=== PATIENT | male | born 1960 | race Caucasian/White ===

== ENCOUNTER → 2019-11-15 12:26 | Outpatient (CLI) | payer SELFPAY ==
[2017-04-26 22:31] VITALS: BMI 25.5
[2019-11-15 14:04] LABS: EST Glomerular Filtration Rate 147 mL/min (>60); Est Glom Filt Rate - Afr Amer 177 mL/min (>60)
== END ==
PROVIDERS: Referring Provider Registered Nurse; Visit Provider Registered Nurse
DX: M51.16 Intervertebral disc disorders with radiculopathy, lumbar region (principal); M54.5 Low back pain; N28.9 Disorder of kidney and ureter, unspecified
CPT/HCPCS: 36415; 82565

== ENCOUNTER → 2025-01-24 | Outpatient (CLI) | payer MEDICARE, SELFPAY ==
--- NOTE | 2025-01-24 16:27 | MRI_ITS ---
PROCEDURE: SPINE LUMBAR (ROUTINE) 01/24/2025 REASON FOR EXAM: PAIN TECHNIQUE: SPINE LUMBAR (ROUTINE) COMPARISON: Radiographs on 12/09/2024. FINDINGS: Heterogeneous signal intensity of the visualized bone marrow, probably osteopenia/osteoporosis. Moderate diffuse spondylosis/moderate multilevel degenerative disc disease. Moderate chronic changes of Scheuermann's disease. Increased kyphosis at the level of the thoracolumbar junction. Moderate chronic changes of Baastrup's disease. Unchanged moderate chronic compression deformity of T12 vertebral body. No evidence of associated retropulsion or secondary canal stenosis. There is no evidence of replacement or acute fracture. The conus is unremarkable. Straightening of the lumbar lordosis, probably muscular spasm and pain. The vertebral alignment is within normal limits. Evaluation of the individual levels revealed the following: L5-S1: Mild diffuse disc bulge. Superimposed broad-based right foraminal disc protrusion measuring 3.2 mm. Bilateral facet joint arthropathy and ligamentum flavum hypertrophy. The spinal canal is not narrowed. There is moderate right and mild left neural foramina narrowing. L4-5: Grade 1 anterolisthesis measuring 3.3 mm. Mild diffuse disc bulge. Bilateral facet joint arthropathy and ligamentum flavum hypertrophy. The spinal canal is mildly narrowed. There is moderate right and mild left neural foramina narrowing. L3-4: There is intervertebral disc fusion. Mild posterior osteophyte formation. The spinal canal is not narrowed. Mild bilateral neural foramina narrowing. L2-3: Mild diffuse disc bulge. Bilateral facet joint arthropathy and ligamentum flavum hypertrophy. The spinal canal is mildly narrowed. Mild bilateral neural foramina narrowing. L1-2: Mild diffuse disc bulge. Bilateral facet joint arthropathy and ligamentum flavum hypertrophy. The spinal canal is not narrowed. Mild bilateral neural foramina narrowing. T12-L1: There is mild diffuse disc bulge. The spinal canal is not narrowed. There is mild bilateral neural foramina narrowing. T11-T12: There is mild diffuse disc bulge. The spinal canal is not narrowed. There is mild bilateral neural foramina narrowing. Normal visualized paraspinous soft tissue structures. MRI/Spine Lumbar (Routine) IMPRESSION: Spondylosis. Degenerative disc disease. [id number]
== END | disposition home or self-care (01) ==
PROVIDERS: Referring Provider Student in an Organized Health Care Education/Training Program; Visit Provider Student in an Organized Health Care Education/Training Program
DX: M51.362 Other intervertebral disc degeneration, lumbar region with discogenic back pain and lower extremity pain (principal)
CPT/HCPCS: 72148

== ENCOUNTER → 2025-04-28 | Outpatient (CLI) | payer MEDICARE, SELFPAY ==
--- OUTSIDE RECORDS SUMMARY | 2025-04-28 08:57 | XMS RPT_ITS | CCD ---
Author Organization [facility] [employer] [facility] Care Team Providers Care Master Plumber Name Role Phone Cathie Ike ELI Unavailable Unavailable Yung VEGA, Gerber Wilde Unavailable SARAH WATKINS Unavailable Unavailable JENNIFER PICKETT Unavailable Unavailable [place] VEGA, Merrill Addison Unavailable Care Physician, No Primary Primary Care Provider Unavailable Care Physician, No Primary Referring Provider Un available Jana Barrera Attending Provider Rama VEGA, Dr. Arita Attending Provider [phone] Jana Barrera Referring Provider Dr. Rm Alcantar MD Attending Provider Care Physician, No Primary Referring Unava ilable Care Physician, No Primary Primary Care Unava ilable Rm Alcantar Attending Unavailable Rm Alcantar Attending Unavailable Rm Alcantar Admitting Unavailable Care Physician, No Primary Primary Care Unava ilable Care Physician, No Primary Primary Care Unava ilable Jana Colin Referring Unavailable Jana Colin Attending Unavailable Care Physician, No Primary Primary Care Unava ilable Juan J Ontiveros Attending Unavailable Care Physician, No Primary Referring Unava ilable Care Physician, No Primary Primary Care Unava ilable Jana Colin Attending Unavailable Allergies Allergy Classification Reported Allergen(s) Allergy Type Date of Onset Reaction(s) Facility (2 sources) bee venom protein (honey bee) Propensity to adverse reactions 5 Other [facility] (1 source) bee venom protein (honey bee) Drug allergy (disorder) 5 [facility] Repository Medications Current Medications Medication Drug Class(es) Dates Sig (Normalized) Sig (Original) meloxicam 7.5 mg oral tablet (14 sources) Nonsteroidal Anti-inflammatory Drug Start: 12-09-2024 take 1 tablet by mouth once daily Meloxicam 7.5 mg tablet Active 7.5 mg PO daily December 09, 2024 12:00am Start: 05-01-2017 End: 05-01-2017 MELOXICAM 7.5 MG TABS 1 tabl et daily prn MELOXICAM [id number] Gerber Barragan MD Start: 04-26-2017 End: 12-09-2024 take 1 tablet by mouth once daily Meloxicam 15 MG tablet Discontinued 15 mg PO DAILY 01 09October 01, 2017 1:02pm December 09, 2024 8:08am methocarbamol 500 mg oral tablet (2 sources) Muscle Relaxant Start: 12-09-2024 take 1 tablet by mouth twice daily Methocarbamol 500 mg tablet Active 500 mg PO TWICE A DAY December 09, 2024 12:00am Completed/Discontinued Medications Medication Drug Class(es) Dates Sig (Normalized) Sig (Original) acetaminophen 325 mg oral tablet (4 sources) Start: 05-01-2017 TYLENOL 325 MG CAPS take as directed ACETAMINOPHEN [id number] Gerber Barragan MD Start: 04-27-2017 take 1-2 tablets by mouth every eight hours as needed for pain Acetaminophen 500 MG tablet Active 1000 mg PO EVERY 8 HOURS NEEDED as needed for pain not controlled with Mobic 30 April 27, 2017 5:46pm 1-2 tabs every 8 hours as needed for pain. cyclobenzaprine hydrochloride 10 mg oral tablet (1 source) Muscle Relaxant Start: 12-05-2019 take 1 tablet by mouth once daily as needed CYCLOBENZAPRINE HCL 10 MG TABS 1 tablet by mouth once daily as needed CYCLOBENZAPRINE HCL [id number] Merrill Osborne MD pregabalin 75 mg oral capsule (1 source) Start: 12-05-2019 take 1 tablet by mouth twice daily LYRICA 75 MG CAPS 1 tablet by mouth twice daily PREGABALIN [id number] Merrill Osborne MD traMADol hydrochloride 50 mg oral tablet (1 source) Opioid Agonist Start: 12-05-2019 take 1 tablet by mouth once daily as needed TRAMADOL HCL 50 MG TABS 1 tablet by mouth once daily as needed TRAMADOL HCL [id number] Merrill Osborne MD Problems Active Problems Problem Classification Problem Date Documented Date Episodic/Chronic Cardiac dysrhythmias (2 sources) Sinus tachycardia; Translations: [Tachycardia, unspecified] 04-27-2017 Episodic Diabetes mellitus without complication (2 sources) Hyperglycemia; Translations: [Hyperglycemia, unspecified] 04-27-2017 Episodic Fluid and electrolyte disorders (2 sources) Dehydration; Translations: [Dehydration] 04-27-2017 Episodic Other acquired deformities (2 sources) Kyphosis deformity of spine; Translations: [Unspecified kyphosis, site unspecified] 03-02-2025 Chronic Other connective tissue disease (2 sources) Weakness of left hand; Translations: [Other symptoms and signs involving the musculoskeletal system] 04-27-2017 Episodic Other screening for suspected conditions (not mental disorders or infectious disease) (2 sources) Decreased thyroid stimulating hormone level; Translations: [Other specified abnormal findings of blood chemistry] 04-27-2017 Episodic Residual codes; unclassified (4 sources) H/O Spinal surgery; Translations: [Other specified postprocedural states] 12-09-2024 Episodic Residual codes; unclassified (1 source) Other specified postprocedural states; Translations: [Other specified postprocedural states] Onset: 01-05-2025 Episodic Residual codes; unclassified (1 source) Other specified postprocedural states; Translations: [Other specified postprocedural states] Onset: 12-05-2019 12-05-2019 Residual codes; unclassified (1 source) Harmful pattern of use of nicotine; Translations: [Tobacco use] Onset: 12-05-2019 12-05-2019 Spondylosis; intervertebral disc disorders; other back problems (5 sources) Degeneration of lumbar intervertebral disc; Translations: [Degenerative disc disease (DDD) of lumbar region with discogenic back pain and leg pa] 12-09-2024 Chronic Spondylosis; intervertebral disc disorders; other back problems (5 sources) Lumbosacral stenosis; Translations: [Low back pain] Onset: 12-05-2019 12-05-2019 Episodic Syncope (4 sources) Syncope; Translations: [Syncope and collapse] Onset: 05-01-2017 05-01-2017 Episodic Unclassified (1 source) Other intervertebral disc degeneration, lumbar region with discogenic back pain and lower extremity pain; Translations: [Other intervertebral disc degeneration, lumbar region with discogenic back pain and lower extremity pain] Onset: 01-28-2025 Unclassified (1 source) Low back pain, unspecified; Translations: [Low back pain, unspecified] Onset: 01-05-2025 Past or Other Problems Problem Classification Problem Date Documented Da te Episodic/Chronic Medical examination/evaluation (2 sources) Encounter for general adult medical examination without abnormal findings; Translations: [Encounter for general adult medical examination without abnormal findings] Onset: 05-01-2017 05-01-2017 Episodic Other non-traumatic joint disorders (2 sources) Hemarthrosis, left knee; Translations: [Pain in left knee] Onset: 02-02-2017 Episodic Unclassified (1 source) Problem Results Test Name Value Interpretation Reference Range Facility Orthopedic Visit Reporton Orthopedic Visit Report [facility] [address] [place] [address] OFFICE VISIT Date of Service: 03/02/25 MR#: [id number] Acct: [id number] Name: RAMON SALINAS Rep #: [id number] : 1960 Provider: Dr. Rm Alcantar MD Age/Sex: 64/M Location: [facility] Status: Signed Intake Vital Signs 12/09/24 08:07 Height 5 ft 10 in Weight: 169 lb 2 oz BMI 24.3 Intake Visit Reasons: LUMBAR SPINE Chief Complaint: Lumbar Spine Pain Accompanied by: Self Allergies bee venom protein (honey bee) (bee sting) Adverse Reaction (Verified 03/02/25 08:04) Other Medications ???Medication ???Instructions ???Recorded ???Confirmed ???Type acetaminophen 500 mg tablet 1,000 mg (2 x 500 mg) PO Q8H PRN 0 04/27/17 03/02/25 Rx PRN pain not controlled with Mobic #30 tabs meloxicam 7.5 mg tablet 7.5 mg PO QDAY 12/09/24 03/02/25 H istory methocarbamol 500 mg tablet 500 mg PO BID 12/09/24 03/02/25 Hi story Have you fallen in the past year?: No [facility] Medical History (Updated 03/02/25 @ 16:[address] Rm Alcantar MD) Kyphosis Foraminal stenosis of lumbar region Surgical History History of back surgery Social History household members: spouse Smoking Status: Current every day smoker alcohol intake: current alcohol intake frequency: a few times a week HPI LUMBAR SPINE Chief Complaint: Lumbar MRI Review Details: This documentation accurately reflects the service provided and the decisions made by me, Dr. Rm Alcantar MD 03/02/25 0758. Part of today???s visit was documented by Albertina Fulton RN, acting as scribe. RAMON SALINAS is a 64 year old M here today for lumbar MRI review. He complains of bilateral low back pain. He reports stiffness in his low back. The pain does radiate down the lateral side of the right leg down to the toes. He describes the pain in his legs as a burning. He does report intermittent numbness and tingling into the right leg. The leg pain bothers him the most. 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 He reports being able to walk sixty yards. He does occasionally have trouble walking long distances. He has not has an injection since December. He is still doing stretching and exercises at home. He would like to discuss his MRI results and next steps. He denies any balance issues. He does report two previous lumbar spine surgeries twenty years ago. He denies a history of diabetes, heart or lung problems. He denies a history of strokes. The patient is a 64-year-old male presenting with worsening lower back pain and right leg pain. The patient has a history of lumbar surgeries performed over 20 years ago, with the first surgery addressing bulging discs at L4-5, followed by a second surgery six months later to address the opposite side at the same level. The second surgery involved a drainage tube and a three-day hospital stay, while the first was an outpatient procedure. Recently, the patient reports worsening pain over the past four years, primarily affecting the right leg, with symptoms including burning pain radiating down the leg to the toes, and stiffness in the back. The patient has been attending a pain management clinic for three years, receiving injections approximately every three months, which provide variable relief. Imaging studies revealed foraminal stenosis at L4-5 and L5-S1, with autofusion at L3-4 and a wedged vertebra at T12, contributing to the patient's symptoms. The patient has a forward-leaning posture and experiences muscle fatigue and spasms due to these spinal changes. - Musculoskeletal: Reports worsening lower back pain and burning pain radiating down the right leg to the toes. Denies pain on the left side. - Neurological: Reports stiffness in the back and variable relief from pain management interventions. Attestation: Documentation on this patient encounter was supported using ambient scribe technology/ voice AI technology. The patient consented to recording for the purpose of documenting the encounter. Provider reviewed content of the generated note prior to signature. 12/09/24: RAMON SALINAS is a 64 year old M here today for lumbar spine pain. Patient states the back has been bothering him off and on for years. He has a history of 2 different back surgeries several years ago. The surgery was with Dr. Wise. These surgeries were around 20 years. He states he had bulging discs and he had one surgery but it didn't take so had to have another one 6 months later. Patient states he has seen career coordinator, [facility], and pain management with Dr. Wilkins. He has been getting injections and the most recent was 1-2 weeks ag (more content not included)... Normal [facility] Magnetic resonance imaging r eportOrdered By: Hood Burgos on 01-25-2025 Study report [facility] [address] [place], [place] [address] Spine Lumbar (Routine) MR#: [id number] Acct: [id number] Name: RAMON SALINAS Rep #: [id number] : 1960 M 64 From: Aaron Burgos MD PCP: Care Physician,No Primary Status: REG CLI Study:Spine Lumbar (Routine) Date of Exam: 01/24/25 Exam# [id number] Ordering Dr: Art Colin PROCEDURE: SPINE LUMBAR (ROUTINE) 01/24/2025 REASON FOR EXAM: PAIN TECHNIQUE: SPINE LUMBAR (ROUTINE) COMPARISON: Radiographs on 12/09/2024. FINDINGS: Heterogeneous signal intensity of the visualized bone marrow, probably osteopenia/osteoporosis. Moderate diffuse spondylosis/moderate multilevel degenerative disc disease. Moderate chronic changes of Scheuermann's disease. Increased kyphosis at the level of the thoracolumbar junction. Moderate chronic changes of Baastrup's disease. Unchanged moderate chronic compression deformity of T12 vertebral body. No evidence of associated retropulsion or secondary canal stenosis. There is no evidence of replacement or acute fracture. The conus is unremarkable. Straightening of the lumbar lordosis, probably muscular spasm and pain. The vertebral alignment is within normal limits. Evaluation of the individual levels revealed the following: L5-S1: Mild diffuse disc bulge. Superimposed broad-based right foraminal disc protrusion measuring 3.2 mm. Bilateral facet joint arthropathy and ligamentum flavum hypertrophy. The spinal canal is not narrowed. There is moderate right and mild left neural foramina narrowing. L4-5: Grade 1 anterolisthesis measuring 3.3 mm. Mild diffuse disc bulge. Bilateral facet joint arthropathy and ligamentum flavum hypertrophy. The spinal canal is mildly narrowed. There is moderate right and mild left neural foramina narrowing. L3-4: There is intervertebral disc fusion. Mild posterior osteophyte formation. The spinal canal is not narrowed. Mild bilateral neural foramina narrowing. L2-3: Mild diffuse disc bulge. Bilateral facet joint arthropathy and ligamentumflavum hypertrophy. The spinal canal is mildly narrowed. Mild bilateral neural foramina narrowing. L1-2: Mild diffuse disc bulge. Bilateral facet joint arthropathy and ligamentumflavum hypertrophy. The spinal canal is not narrowed. Mild bilateral neural foramina narrowing. T12-L1: There is mild diffuse disc bulge. The spinal canal is not narrowed. There is mild bilateral neural foramina narrowing. T11-T12: There is mild diffuse disc bulge. The spinal canal is not narrowed. There is mild bilateral neural foramina narrowing. Normal visualized paraspinous soft tissue structures. MRI/Spine Lumbar (Routine) IMPRESSION: Spondylosis. Degenerative disc disease. Reading Location: [place] [address] CC: DARIUS Song; No Primary Care Physician ~ Job Boss: Signed [facility] Spine Lumbar (Routine)on Spine Lumbar (Routine) [facility] [address] [place], [place] [address] Spine Lumbar (Routine) MR#: [id number] Acct: [id number] Name: RAMON SALINAS Rep #: [id number] : 1960 M 64 From: Hood sin MD PCP: Care Physician,No Primary Status: REG CLI Study: Spine Lumbar (Routine) Date of Exam: 01/24/25 Exam# [id number] Ordering Dr: Jana Colin PROCEDURE: SPINE LUMBAR (ROUTINE) 01/24/2025 REASON FOR EXAM: PAIN TECHNIQUE: SPINE LUMBAR (ROUTINE) COMPARISON: Radiographs on 12/09/2024. FINDINGS: Heterogeneous signal intensity of the visualized bone marrow, probably osteopenia/osteoporosis. Moderate diffuse spondylosis/moderate multilevel degenerative disc disease. Moderate chronic changes of Scheuermann's disease. Increased kyphosis at the level of the thoracolumbar junction. Moderate chronic changes of Baastrup's disease. Unchanged moderate chronic compression deformity of T12 vertebral body. No evidence of associated retropulsion or secondary canal stenosis. There is no evidence of replacement or acute fracture. The conus is unremarkable. Straightening of the lumbar lordosis, probably muscular spasm and pain. The vertebral alignment is within normal limits. Evaluation of the individual levels revealed the following: L5-S1: Mild diffuse disc bulge. Superimposed broad-based right foraminal disc protrusion measuring 3.2 mm. Bilateral facet joint arthropathy and ligamentum flavum hypertrophy. The spinal canal is not narrowed. There is moderate right and mild left neural foramina narrowing. L4-5: Grade 1 anterolisthesis measuring 3.3 mm. Mild diffuse disc bulge. Bilateral facet joint arthropathy and ligamentum flavum hypertrophy. The spinal canal is mildly narrowed. There is moderate right and mild left neural foramina narrowing. L3-4: There is intervertebral disc fusion. Mild posterior osteophyte formation. The spinal canal is not narrowed. Mild bilateral neural foramina narrowing. L2-3: Mild diffuse disc bulge. Bilateral facet joint arthropathy and ligamentum flavum hypertrophy. The spinal canal is mildly narrowed. Mild bilateral neural foramina narrowing. L1-2: Mild diffuse disc bulge. Bilateral facet joint arthropathy and ligamentum flavum hypertrophy. The spinal canal is not narrowed. Mild bilateral neural foramina narrowing. T12-L1: There is mild diffuse disc bulge. The spinal canal is not narrowed. There is mild bilateral neural foramina narrowing. T11-T12: There is mild diffuse disc bulge. The spinal canal is not narrowed. There is mild bilateral neural foramina narrowing. Normal visualized paraspinous soft tissue structures. MRI/Spine Lumbar (Routine) IMPRESSION: Spondylosis. Degenerative disc disease. Reading Location: [place] [address] CC: DARIUS Song; No Primary Care Physician Job Boss: Signed Normal [facility] L/S Spine Min 4 Viewson L/S Spine Min 4 Views [facility] [address] [place] [address] L/S Spine Min 4 Views MR#: [id number] Acct: [id number] Name: RAMON SALINAS Rep #: [id number] : 1960 M 64 From: Sha Moscoso MD PCP: Care Physician,No Primary Status: DEP AMB Study: L/S Spine Min 4 Views Date of Exam: 12/09/24 Exam# [id number] Ordering Dr: Jana Colin PROCEDURE: L/S SPINE MIN 4 VIEWS 12/09/2024 REASON FOR EXAM: CHRONIC PAIN, PAIN RADIATES DOWN RT LEG TECHNIQUE: Four views, AP, lateral, flexion-extension COMPARISON: None available FINDINGS: 5 [id number] lumbar vertebral body types identified. Likely remote appearing moderate anterior wedge compression deformity of T12. No lumbar fracture or malalignment identified. L1-2 moderate disc space narrowing and degenerative endplate changes L2-3 mild disc space narrowing with anterior corner osteophyte formation L3-4 severe disc space narrowing with essentially [id number]-[id number] contact L4-5 severe disc space narrowing with [id number]-[id number] contact and degenerative endplate changes with appearance of suggested foraminal narrowing L5-S1 spondylosis/discogenic change No evidence of instability RAD/L/S Spine Min 4 Views IMPRESSION: Multilevel spondylosis/discogenic changes above. Likely remote appearing moderate anterior wedge compression deformity of T12. Reading Location: [id number] CC: DARIUS Song; No Primary Care Physician Job Boss: Signed Normal [facility] Orthopedic Visit Reporton Orthopedic Visit Report [facility] [address] [place] [address] OFFICE VISIT Date of Service: 12/09/24 MR#: [id number] Acct: [id number] Name: RAMON SALINAS Rep #: [id number] : 1960 Provider: DARIUS Song Age/Sex: 64/M Location: [facility] Status: Signed Intake Vital Signs 04/27/17 13:23 12/09/24 08:07 Height 5 ft 10 in 5 ft 10 in Weight: 169 lb 2 oz BMI 24.3 Intake Visit Reasons: LUMBAR SPINE Chief Complaint: Lumbar Spine Pain Accompanied by: Self Is patient in pain?: Yes Pain scale (1-10): 2 Allergies bee venom protein (honey bee) (bee sting) Adverse Reaction (Verified 12/09/24 08:09) Other Medications ???Medication ???Instructions ???Recorded ???Confirmed ???Type acetaminophen 500 mg tablet 1,000 mg (2 x 500 mg) PO Q8H PRN 0 04/27/17 12/09/24 Rx PRN pain not controlled with Mobic #30 tabs meloxicam 7.5 mg tablet 7.5 mg PO QDAY 12/09/24 12/09/24 H istory methocarbamol 500 mg tablet 500 mg PO BID 12/09/24 12/09/24 Hi story Have you fallen in the past year?: No PFSH Surgical History History of back surgery Social History (Updated 12/09/24 @ 08:10 by Emeli White) household members: spouse Smoking Status: Current every day smoker alcohol intake: current alcohol intake frequency: a few times a week HPI LUMBAR SPINE Details: This documentation accurately reflects the service provided and the decisions made by me, DARIUS Song 12/09/24 0802. Part of today???s visit was documented by Emeli Pruitt ATC, acting as scribe. RAMON SALINAS is a 64 year old M here today for lumbar spine pain. Patient states the back has been bothering him off and on for years. He has a history of 2 different back surgeries several years ago. The surgery was with Dr. Wise. These surgeries were around 20 years. He states he had bulging discs and he had one surgery but it didn't take so had to have another one 6 months later. 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 Wilkins. He has been getting injections and the most recent was 1-2 weeks ago. Says that he has relief from that injection. He states the injections do give him relief. He states one injection gave him relief for about 5 months. He describes the pain in the right lumbar spine and down the right leg. He gets a burning sensation down the right leg and he feels like this is down his entire leg. He says that this extends do to his foot. Denies any left sided leg symptoms. He states most of the pain in the lumbar spine are right around his scars from the previous surgeries. He states he gets pain, numbness/tingling down the right leg. He states when the pain is really bad he notices he starts waddling when walking. He still works part-time at [employer] and states he is on his feet all day long so at the end of the day both legs hurt and it is hard to tell if they are weak. He denies any balance issues. He is prescribed meloxicam and methocarbamol but states he hasn't noticed if it gives him any relief or not. He does exercises and stretches at home on his own. He was sent to physical therapy in the past but states most of the stuff can be done on his own. He had an MRI done at [facility] in 2019. No diabetes, no heart or lung issues, no blood thinners. No prior abdominal surgeries. Ortho Exam General General: Yes no acute distress Neurologic: Yes alert and Yes oriented x3 Spine SPINE TESTING CERVICAL THORACIC LUMBAR Musculoskeletal Strength 0=absent - 5=normal Details: Neurological exam of the lower extremities shows 5x5 power. Normal sensations across all dermatomes. No hyperreflexia. No midline or paraspinal tenderness. Physical examination of the back shows a well-healed midline incision. Coding Level of Care Code Off vis,new,level 4 Diagnoses Degenerative disc disease (DDD) of lumbar region with discogenic back pain and leg pain M51.362 History of back surgery Z98.890 Assessment and Plan Assessment and Plan (1) Degenerative disc disease (DDD) of lumbar region with discogenic back pain and leg pain: Status: Acute (2) History of back surgery: Status: Acute Orders: Orders L/S Spine Min 4 Views Today M54.50 - Low back pain, unspecified Spine Lumbar (Routine) Today M51.362 - Other intervertebral disc degeneration, lumbar region with discogenic back pain and lower extremity pain Medications: Discontinued meloxicam Discontinued Reason: Pt no longer taking 15 mg PO DAILY 30 tabs 1RF Plan Obtained and reviewed x-rays today in the clinic. Independent interpretation of the x-rays was performed. X-rays show a multilevel disc height loss throughout the lumbar spine, a mild spondylolisthesis of L4 o (more content not included)... Normal [facility] Clinical Summary: HMSPatient IDon 12-05-2019 [facility] Work Phone: Office Visit: New - 1st visi t with practice, Rm: 2on 12-05-2019 NEGATED: Highlighted rowMRI (magnetic resonance imaging) history of the lumbar on 11/24/2019 at [facility] imported [facility] Work Phone: NEGATED: Highlighted rowTobacco smoking status NHIS current everyday smoker [facility] Work Phone: NEGATED: Highlighted rowxray history of the lumbar on 11/07/2019 at [facility] imported [facility] [facility] Work Phone: Office Visit: New Pt. Visito n 05-01-2017 Documentation of current medications (procedure) Done Invalid Interpretation Code [facility] Work Phone: Fall risk assessment No Invalid Interpretation Code [facility] Work Phone: Tobacco use [facility] Current every day smoker Invali d Interpretation Code [facility] Work Phone: OBSOLETEon 03-09-2017 OBSOLETE Refill (ORTHWS) RAMON SALINAS ([id number]) 1960 MDate Time Provider Department03/09/17 JENNIFER PICKETT During your visit today, we recorded the following information about you:Sarah Barreto RN 03/09/2017 11:55 AM SignedPatient has been identified by name and date of : YesRX INSTRUCTIONS:Patient aware RX will be sent to pharmacy. Please call when approved.Patient phones requesting refills as follows:Pending Prescriptions Disp Refills MELOXICAM 15 MG TABLET 30 tablet 0 Sig: Take 1 tablet by mouth once daily. SHITAL: NoPt. states it has really helped but he would like to keep taking so he canavoid surgery. Please review and advise.Sarah Flynn Ma 03/10/2017 8:13 AM SignedLeft a detailed message for patient on Priori Data.Allergies As of Date: 03/09/2017(No Known Allergies)Date Reviewed: 02/12/2017Reviewed by: Kristyn Park Ma - Fully AssessedReason for Visit: Refill Request [94]Order(s):meloxicam (MOBIC) 15 mg tabletTake 1 tablet by mouth once daily.Disp: 30 tabletRfl: 0Prescriptions as of 03/09/2017 Sig: MELOXICAM 15 MG TABLET Take 1 tablet by mouth once d*Problem List As Of Date: 03/09/2017(None)Prescrip tions ordered this encounter Disp Refills Start End MELOXICAM 15 MG TABLET 30 t* 0 03/10/2017 Route: ORAL Sig: Take 1 tablet by mouth once daily.Medications Discontinued During This Encounter meloxicam (MOBIC) 15 mg tablet 30 t* 0 02/12/2017 03/10/2017 Route: ORAL Sig: Take 1 tablet by mouth once daily. Disc: Reason for discontinue is not on file. Status:Closed by JENNIFER PICKETT MD on 03/10/17 [facility] CNOVon 02-12-2017 CNOV Office Visit (ORTHWS) RAMON SALINAS ([id number]) 1960 MDate Time Provider Department02/12/17 2:25 PM JENNIFER PICKETT During your visit today, we recorded the following information about you: Pulse Blood pressure Weight Height 74/minute 133/84 81.6 kg 1.765 Litzy Park Ma 02/18/2017 7:42 AM SignedPatient presents with:New Patient: Left knee meniscus tear - Ref. Dr. Watt ROOMING INTAKE FLOWSHEET DATARisk ScreeningDo you have concerns about personal safety or safety in the home?: NoPainPain Score: 4/10Pain Location: Knee-LeftDescription: Dull, AchingDuration Amount of Time: 6Duration Units: MonthsFrequency: ContinuousIntervention: Sri Watkins referring patient. Patient states he started having medial left kneepain in August. No specific injury. Dr. Watkins gave him a cortisone injectionon 12/31/16 and only helped for about 3 days. He was seen 1 1/2 weeks later anddid and aspiration on his knee. Patient had x-rays done on 12/31/16 and MRI on02/02/17. 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 Taking Daypro for the pain and is not sure if is is helpingor if the aspiration helped his pain.Jennifer Pickett MD 02/18/2017 7:42 AM SignedJennifer Pickett [facility]edicsOrtk[facility] human [facility] ssdaecs [place] [address]Nhvq: [phone] Acmi 2016CHIEF COMPLAINT: New Patient (Left knee meniscus tear - Ref. Dr. Watkins)HPI: Mr. Ramon Salinas is a 56 year old male presents for consultation witha left knee giving him troubles over the last 6 months or so. Aching and dullpain at times can be 4 out of 10. He denies any specific injury nor trauma.He does stand on his feet all day and has to crouch down which gives it theknee more troubles. He had a cortisone injection and also subsequently had abit of a hemarthrosis and had an aspiration and back in the beginning of January.He states that the removal of fluid on the knee allow the knee to feel quite abit better more recently his he's been taking Daypro as well, but is unsure ofits efficacy.ASSESSMENT:M25. 562 Acute pain of left knee (primary encounter diagnosis)PLAN:Were going to try an anti-inflammatory as well as possibly an rail car unloader, howeverhe does not think it be able to use it based on all of squatting he has to do.He certainly has some reported improvement since its prior visit and nosurgical intervention is necessary at this time.If symptoms persist, knee arthroscopy certainly would be an appropriateintervention. FOLLOW UP INSTRUCTIONS:As neededMr. Ramon Salinas was advised as to contrast therapies and/or to takeanalgesics/anti-infl ammatories as needed and all contraindications werereviewed.OBJECTIVE:Apolinar Salinas is a pleasant 56 year old in no apparent distress.Gen:BP 133/84 Pulse 74 Ht 5' 9.5ANDquot; (1.77m) Wt 180 lb (81.6kg) BMI26.21 kg/(m2). nl development, non obese, no deformitiesENT: Normocephalic, normal hearing, moist mucosaCV: Pulses:DP/PT= 2+ and symmetric, capillary refill ANDlt; 2 secs, no peripheraledema/varicosi tiesSkin: no rash, bruising or lesions. Good turgor.Psych: cooperative and appropriate, alert and oriented x 3, good mood andaffect.Musculoskeleta l:Patient walks with a very mild antalgia, normal station. Hip motion withoutpain. Knee with scant effusion. Patella tracks normally. There is nopatellar crepitance. No pain along the medial or lateral facets. Range ofmotion 5?130 degrees. Positive medial, without lateral joint line pain onpalpation. Ligamentous exam stable on varus and valgus stress testing at 0 and30 degrees. Hung's examination is negative. Posterior drawer is negative.Painful McMurrays, without palpable click. Extremity is warm and well perfused. 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 0212 ?- ?MRI KNEE WO IVCON LT ?/ REASON: multiple diagnoses?? ?* * * * Physician Interpretation * * * *?EXAMINATION: ?MRI LEFT KNEE WITHOUT CONTRASTHISTORY: ?Hemarthrosis, left knee Pain in left kneeTECHNIQUE: Routine non-contrast MRI of the kneeM: ?MRK_2COMPARISON: ?Radiographs 12/31/2016RESULT:MENISCI :Medial Meniscus: ?Complex tear in the posterior horn and body there isprobably displaced tissue near the posterior horn superiorly.Lateral Meniscus: ?Degenerative changes without a tearLIGAMENTS:ACL: ?IntactPCL: ?IntactMCL: ?IntactLCL Complex: ?IntactCARTILAGE:Medial Femoral Condyle: Large area(s) of full thickness cartilageloss/fissuringM edial Tibial Plateau: Moderate sized area(s) of predominantly low grade(ANDlt;50% thickness) cartilage loss/fissuring with smaller area(s) of fullthickness cartilage loss/fissuringLateral Femoral Condyle: NormalLateral Tibial Plateau: NormalPatella: NormalTrochlea: NormalTENDONS: ?The distal quadriceps and patellar tendons are intact. ?Thepopliteus tendon is intact.BONES AND MARROW: ?Subchondral trabecular insufficiency fractureweightbearing surface of the medial tibial Plateau medially with moderatedegree of adjacent bone marrow edema.MUSCLES: ?Muscle bulk and signal intensity are normal.JOINT FLUID AND SYNOVIUM: ?Small joint effusion. ?No synovitis. NoBaker's cyst.OTHER: ?No other significant abnormality identified.Supporting Subjective Information Below:Past Medical History: No past medical history on file.Past Surgical History: PAST SURGICAL [id number]: PAST SURGICAL HISTORY OF Comment: Removal calcium deposits and bone spurs on lumbar spineNo date: REMOVE TONSILS/ADENOIDS,ANDlt;1 2 Y/O Comment: T/A (under age 10 years)Family History:FAMILY HISTORY Heart Mother Arthritis Mother CHF [OTHER] FatherSocial History:Social History Marital status: Spouse name: Years of education: Number of children:Social History Main Topics Smoking status: Current Every Day Smoker Packs/day: 1.00 Years: 26.00 Types: Cigarettes Smokeless status: Never Used Alcohol use: Yes Comment: Occasionally Drug use: No Sexual activity: Yes Partners with: FemaleMedications:Ilir moreno Outpatient Prescriptions:meloxicam (MOBIC) 15 mg tablet Take 1 tablet by mouth once daily.No current facility-administered medications for this visit.Allergies: Review of patient's allergies indicates no known allergies.ROS:General (negative for fatigue, malaise, weight loss/gain)HEENT (negative for headache, earache, recent vision changes, sinus pain, sorethroat) Respiratory (no recent shortness of breath, hemoptysis)CV (negative for chest tightness, palpitations)Musculoskel etal (see HPI)Psych (no depression, anxiety)This note was partially generated using DEXMA voice recognition system, andthere may be some incorrect words, spellings, and punctuation that were notnoted in checking the note before saving.Lizz Whittington Provider: SELF [200]Allergies As of Date: 02/12/2017(No Known Allergies)Date Reviewed: 02/12/2017Reviewed by: Kristyn Park Ma - Fully AssessedReason for Visit: New Patient [172] Cmt: Left knee meniscus tear [facility] Diagnosis:Acute pain of left knee [M25.562]Order(s):meloxi cam (MOBIC) 15 mg tabletTake 1 tablet by mouth once daily.Disp: 30 tabletRfl: 0Prescriptions as of 02/12/2017 Sig: MELOXICAM 15 MG TABLET Take 1 tablet by mouth once d*Problem List As Of Date: 02/12/2017(None)Prescrip tions ordered this encounter Disp Refills Start End MELOXICAM 15 MG TABLET 30 t* 0 02/12/2017 Route: ORAL Sig: Take 1 tablet by mouth once daily.Medications Discontinued During This Encounter oxaprozin (DAYPRO) 600 mg tablet 60 t* 0 01/16/2017 02/12/2017 Route: ORAL Sig: Take 1 tablet by mouth twice daily for 30 days. Disc: Changing Therapy/Dosage FormLetter Josetemoe Salinas Date [facility] - 1960 [facility] - [id number] Pickett M.D.Department of Orthopaedic [address]flwzt[address], [place] [address]Refvvf: [phone]: [phone]: Ramon Salinas [id number] Whom It May Concern:Ramon Salinas was seen in my office today at [facility].Please excuse from work.Should you have any questions, or require additional information, please donot hesitate to contact my office.Sincerely,Jennifer Pickett MDEncounter Number: [id number] Status:Closed by JENNIFER PICKETT MD on 02/18/17 Normal [facility] PROGRESSon 02-12-2017 PROGRESS HNO ID: [id number]: Jennifer PickettService: (none)Author Type: PhysicianType: Progress NotesFiled: 02/18/2017 7:42 AMNote Text:SHAJI Whittingtonepartment of OrthopaedicsOrthopaedics [address] [place] [address]Hjve: [phone] Febz 2016CHIEF COMPLAINT: New Patient (Left knee meniscus tear - Ref. Dr. Watkins)HPI: Mr. Ramon Salinas is a 56 year old male presents for consultationwith a left knee giving him troubles over the last 6 months or so. Achingand dull pain at times can be 4 out of 10. He denies any specific injurynor trauma. He does stand on his feet all day and has to crouch downwhich gives it the knee more troubles. He had a cortisone injection andalso subsequently had a bit of a hemarthrosis and had an aspiration andback in the beginning of January. He states that the removal of fluid on theknee allow the knee to feel quite a bit better more recently his he's beentaking Daypro as well, but is unsure of its efficacy.ASSESSMENT:M25. 562 Acute pain of left knee (primary encounter diagnosis)PLAN:Were going to try an anti-inflammatory as well as possibly an rail car unloader,however he does not think it be able to use it based on all of squattinghe has to do. He certainly has some reported improvement since its priorvisit and no surgical intervention is necessary at this time.If symptoms persist, knee arthroscopy certainly would be an appropriateintervention. FOLLOW UP INSTRUCTIONS:As neededMr. Ramon Salinas was advised as to contrast therapies and/or to takeanalgesics/anti-infl ammatories as needed and all contraindications werereviewed.OBJECTIVE:Apolinar Salinas is a pleasant 56 year old in no apparent distress.Gen:BP 133/84 Pulse 74 Ht 5' 9.5" (1.77m) Wt 180 lb (81.6kg) BMI26.21 kg/(m2). nl development, non obese, no deformitiesENT: Normocephalic, normal hearing, moist mucosaCV: Pulses:DP/PT= 2+ and symmetric, capillary refill < 2 secs, noperipheral edema/varicositiesSkin: no rash, bruising or lesions. Good turgor.Psych: cooperative and appropriate, alert and oriented x 3, good mood andaffect.Musculoskeleta l:Patient walks with a very mild antalgia, normal station. Hip motionwithout pain. Knee with scant effusion. Patella tracks normally. Thereis no patellar crepitance. No pain along the medial or lateral facets.Range of motion 5?130 degrees. Positive medial, without lateral jointline pain on palpation. Ligamentous exam stable on varus and valgus stresstesting at 0 and 30 degrees. Hung's examination is negative.Posterior drawer is negative. Painful McMurrays, without palpable click.Extremity is warm and well perfused. Sensation is grossly intact to lighttouch, subjectively.IMAGING:COM PLEX TEAR OF THE MEDIAL MENISCUS, DEGENERATIVE CHONDRAL LOSS IN THEMEDIAL COMPARTMENT AND SMALL SUBCHONDRAL TRABECULAR DEFICIENCY FRACTUREIN THE MEDIAL TIBIAL PLATEAU.Job Boss : ABBI ?Transcribe Date/Time: Jan ?2:05PDictated by : VIRGINIA LOPEZ MDThis examination was interpreted and the report reviewed andelectronically signed by:VIRGINIA LOPEZ MD on Jan ?2:08PM ?ESTResults-Findings* * *Final Report* * *DATE OF EXAM: Jan ?1:46PM ?WRM ? 0212 ?- ?MRI KNEE WO IVCON LT ?/ REASON: multiple diagnoses?? ?* * * * Physician Interpretation * * * *?EXAMINATION: ?MRI LEFT KNEE WITHOUT CONTRASTHISTORY: ?Hemarthrosis, left knee Pain in left kneeTECHNIQUE: Routine non-contrast MRI of the kneeM: ?MRK_2COMPARISON: ?Radiographs 12/31/2016RESULT:MENISCI :Medial Meniscus: ?Complex tear in the posterior horn and body there isprobably displaced tissue near the posterior horn superiorly.Lateral Meniscus: ?Degenerative changes without a tearLIGAMENTS:ACL: ?IntactPCL: ?IntactMCL: ?IntactLCL Complex: ?IntactCARTILAGE:Medial Femoral Condyle: Large area(s) of full thickness cartilageloss/fissuringM edial Tibial Plateau: Moderate sized area(s) of predominantly low grade(<50% thickness) cartilage loss/fissuring with smaller area(s) of fullthickness cartilage loss/fissuringLateral Femoral Condyle: NormalLateral Tibial Plateau: NormalPatella: NormalTrochlea: NormalTENDONS: ?The distal quadriceps and patellar tendons are intact. ?Thepopliteus tendon is intact.BONES AND MARROW: ?Subchondral trabecular insufficiency fractureweightbearing surface of the medial tibial Plateau medially with moderatedegree of adjacent bone marrow edema.MUSCLES: ?Muscle bulk and signal intensity are normal.JOINT FLUID AND SYNOVIUM: ?Small joint effusion. ?No synovitis. NoBaker's cyst.OTHER: ?No other significant abnormality identified.Supporting Subjective Information Below:Past Medical History: No past medical history on file.Past Surgical History: PAST SURGICAL [id number]: PAST SURGICAL HISTORY OF Comment: Removal calcium deposits and bone spurs on lumbar spineNo date: REMOVE TONSILS/ADENOIDS,<12 Y/O Comment: T/A (under age 10 years)Family History:FAMILY HISTORY Heart Mother Arthritis Mother CHF [OTHER] FatherSocial History:Social History Marital status: Spouse name: Years of education: Number of children:Social History Main Topics Smoking status: Current Every Day Smoker Packs/day: 1.00 Years: 26.00 Types: Cigarettes Smokeless status: Never Used Alcohol use: Yes Comment: Occasionally Drug use: No Sexual activity: Yes Partners with: FemaleMedications:Ilir moreno Outpatient Prescriptions:meloxicam (MOBIC) 15 mg tablet Take 1 tablet by mouth once daily.No current facility-administered medications for this visit.Allergies: Review of patient's allergies indicates no known allergies.ROS:General (negative for fatigue, malaise, weight loss/gain)HEENT (negative for headache, earache, recent vision changes, sinus pain,sore throat) Respiratory (no recent shortness of breath, hemoptysis)CV (negative for chest tightness, palpitations)Musculoskel etal (see HPI)Psych (no depression, anxiety)This note was partially generated using DEXMA voice recognition system,and there may be some incorrect words, spellings, and punctuation thatwere not noted in checking the note before saving.Jennifer Pickett MD Normal [facility] PROGRESS HNO ID: [id number]: Kristyn Woodruffervice: (none)Author Type: (none)Type: Progress NotesFiled: 02/18/2017 7:42 AMNote Text:Patient presents with:New Patient: Left knee meniscus tear - Ref. Dr. WatkinsAMB ROOMING INTAKE FLOWSHEET DATARisk ScreeningDo you have concerns about personal safety or safety in the home?: NoPainPain Score: 4/10Pain Location: Knee-LeftDescription: Dull, AchingDuration Amount of Time: 6Duration Units: MonthsFrequency: ContinuousIntervention: Sri Watkins referring patient. Patient states he started having medial leftknee pain in August. No specific injury. Dr. Watkins gave him a cortisoneinjection on 12/31/16 and only helped for about 3 days. He was seen 1 1/2weeks later and did and aspiration on his knee. Patient had x-rays done on12/31/16 and MRI on 02/02/17. Patient works in an [employer] and stands on his feet all day. Taking Daypro for the pain andis not sure if is is helping or if the aspiration helped his pain. Normal [facility] MRI KNEE WO IVCON LTon 02-02 MRI KNEE WO IVCON LT * * *Final Report* * *DATE OF EXAM: Feb 02 2017 1:46PM [facility] 0212 - MRI KNEE WO IVCON LT / REASON: multiple diagnoses * * * * Physician Interpretation * * * * EXAMINATION: MRI LEFT KNEE WITHOUT CONTRASTHISTORY: Hemarthrosis, left knee Pain in left kneeTECHNIQUE: Routine non-contrast MRI of the kneeM: MRK_2COMPARISON: Radiographs 12/31/2016RESULT:MENISCI :Medial Meniscus: Complex tear in the posterior horn and body there is probably displaced tissue near the posterior horn superiorly.Lateral Meniscus: Degenerative changes without a tearLIGAMENTS:ACL: IntactPCL: IntactMCL: IntactLCL Complex: IntactCARTILAGE:Medial Femoral Condyle: Large area(s) of full thickness cartilage loss/fissuringMedial Tibial Plateau: Moderate sized area(s) of predominantly low grade (<50% thickness) cartilage loss/fissuring with smaller area(s) of full thickness cartilage loss/fissuringLateral Femoral Condyle: NormalLateral Tibial Plateau: NormalPatella: NormalTrochlea: NormalTENDONS: The distal quadriceps and patellar tendons are intact. The popliteus tendon is intact.BONES AND MARROW: Subchondral trabecular insufficiency fracture weightbearing surface of the medial tibial Plateau medially with moderate degree of adjacent bone marrow edema.MUSCLES: Muscle bulk and signal intensity are normal.JOINT FLUID AND SYNOVIUM: Small joint effusion. No synovitis. No Wan's cyst.OTHER: No other significant abnormality identified.IMPRESSION:CO MPLEX TEAR OF THE MEDIAL MENISCUS, DEGENERATIVE CHONDRAL LOSS IN THE MEDIAL COMPARTMENT AND SMALL SUBCHONDRAL TRABECULAR DEFICIENCY FRACTURE IN THE MEDIAL TIBIAL PLATEAU.Job Boss : ABBI Transcribe Date/Time: Feb 02 2017 2:05PDictated by : VIRGINIA LOPEZ MDThimecca examination was interpreted and the report reviewed and electronically signed by: VIRGINIA LOPEZ MD on Feb 02 2017 2:08PM EST Normal [facility] PROGRESSon 02-02-2017 PROGRESS HNO ID: [id number]: Mere Varner RtService: (none)Author Type: (none)Type: Progress NotesFiled: 02/02/2017 1:22 PMNote Text: Radiology Service Progress NotePATIENT NAME: Ramon SalinasMRN: [id number] OF SERVICE: February 02, 2017TIME: 1:21 PMPATIENT IDENTITY VERIFICATION COMPLETED USING TWO (2) METHODS: Patientconfirmed name verbally and Date of .PATIENT GENDER DATA: MalePATIENT RELEVANT IMPLANT DATA REVIEWED: YesRADIOLOGY DEPARTMENT: MR; Exam(s) Completed: Lower MSK: Knee, leftPERIPHERAL IV DATA: Not applicableSIGNED BY: Mere Varner RtJuly 2016 1:21 PM Normal [facility] Vital Signs Date Time Vital Sign Value Performing Clinician Facility 12-09-2024 08:07-0400 Body height 177.8 cm No Primary Care Physician [facility] 12-09-2024 08:07-0400 Body mass index (BMI) [Ratio] 24.3 kg/m2 No Primary Care Physician [facility] 12-09-2024 08:07-0400 Body weight 76.71 kg No Primary Care Physician [facility] 05-01-2017 13:24-0400 BMI (Body Mass Index) 26.15 kg/m2 Gerber Barragan MD [facility] Work Phone: 05-01-2017 13:24-0400 Body Temperature 97.5 [degF] Gerber Barragan MD [facility] Work Phone: 05-01-2017 13:24-0400 BP Diastolic 87 mm[Hg] Gerber Barragan MD [facility] Work Phone: 05-01-2017 13:24-0400 BP Systolic 141 mm[Hg] Gerber Barragan MD [facility] Work Phone: 05-01-2017 13:24-0400 Height 172.72 cm Gerber Barragan MD [facility] Work Phone: 05-01-2017 13:24-0400 Pulse (Heart Rate) 70 /min Gerber Barragan MD [facility] Work Phone: 05-01-2017 13:24-0400 Respiratory Rate 16 /min Gerber Barragan MD [facility] Work Phone: 05-01-2017 13:24-0400 Weight 78.02 kg Gerber Barragan MD [facility] Work Phone: NEGATED: Highlighted [id number] 11:19-0400 BMI (Body Mass Index) 24.57 kg/m2 Hair Vance ANIMAL 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 WORKER [facility] Work Phone: NEGATED: Highlighted [id number] 11:19-0400 Body weight 73 kg Hair Pinky ANIMAL HUSBANDRY WORKER [facility] Work Phone: NEGATED: Highlighted [id number] 11:19-0400 Body weight 73.03 kg Hair Pinky ANIMAL HUSBANDRY WORKER [facility] Work Phone: NEGATED: Highlighted [id number] 11:19-0400 Heart rate 2+ Hair Vance ANIMAL HUSBANDRY WORKER [facility] Work Phone: NEGATED: Highlighted [id number] 11:19-0400 Height 173 cm Hair Vance ANIMAL HUSBANDRY WORKER [facility] Work Phone: NEGATED: Highlighted [id number] 11:190400 Height 172.72 cm Hair Vance LPN [facility] Work Phone: Encounters Encounter Date Encounter Type Care Provider Facility Start: 07-11-2025 ambulatory Rm Alcantar Facility:[facility] Start: 03-02-2025 End: 03-02-[address] Rm Alcantar MD -[facility] Work Phone: Start: 03-02-2025 End: 03-02-2025 ambulatory No Primary Care Physician -[facility] Start: 01-24-2025 End: 01-24-2025 ambulatory No Primary Care Physician -[facility] Start: 01-24-2025 End: 01-24-2025 Patient encounter procedure Jana MCCOY -[facility] Work Phone: Start: 01-24-2025 End: 01-24-2025 ambulatory No Primary Care Physician Facility:[facility] Start: 12-09-2024 End: 12-09-2024 Patient encounter procedure Jana MCCOY -[facility] Work Phone: Start: 12-09-2024 End: 12-09-2024 ambulatory No Primary Care Physician Facility:[facility] Start: 12-05-2019 End: 12-05-2019 Patient encounter procedure Merrill Osborne MD Work Phone: [facility] Work Phone: Start: 02-12-2017 End: 02-18-2017 Ambulatory JENNIFER PICKETT [facility] Start: 02-02-2017 End: 02-02-2017 Ambulatory SARAH WATKINS [facility] Procedures Date Procedure Procedure Detail Performing Clinician Start: 01-24-2025 MRI of lumbar spine No Primary Care Physician Start: 12-09-2024 X-ray of lumbosacral spine No Primary Care Physician Start: 12-05-2019 End: 12-05-2019 Blood pressure screening not performed - reason not given Merrill Osborne MD Work Phone: Start: 12-05-2019 End: 12-05-2019 BMI documented within normal parameters - no follow-up plan is required Merrill Osborne MD Work Phone: Start: 12-05-2019 End: 12-05-2019 Documentation of current medications Merrill Osborne MD Work Phone: Start: 12-05-2019 End: 12-05-2019 Pain assessment documented as positive - follow-up documented Merrill Osborne MD Work Phone: Start: 12-05-2019 End: 12-05-2019 Pt tobacco screen rcvd tlk Merrill Osborne MD Work Phone: NEGATED: Highlighted rowStart: 12-05-2019 End: 12-05-2019 Documentation of current medications Hair Vance LPN NEGATED: Highlighted rowStart: 12-05-2019 End: 12-05-2019 Smoking cessation education Hair Vance LPN Plan of Treatment Date Care Activity Detail Author Start: 02-06-2020 End: 02-06-2020 Appointment Appointment [facility] Work Phone: Start: 12-05-2019 End: 12-05-2019 Appointment Appointment [facility] Work Phone: Start: 12-05-2019 End: 12-05-2019 Njx dx/ther sbst intrlmnr lmbr/sac w/img gdn Epidural injection(s) - Lumbar [facility] Work Phone: Start: 12-05-2019 End: 12-05-2019 Pain Management consultation Pain Management consultation Non Specified [facility] Work Phone: Start: 05-01-2017 End: 05-01-2017 Appointment Appointment [facility] Work Phone: Start: 05-01-2017 End: 05-01-2017 Follow Up Appt 6 months Follow Up Appt 6 months [facility] Work Phone: Patient Education \\[id number] PtEducati [id number] [facility] Work Phone: Immunizations Immunization Date Immunization Notes Care Provider Flory mock 05-14-2016 Influenza virus vaccine No P rimary Care Physician [facility] 11-27-2014 tetanus toxoid, redu amado diphtheria toxoid, and acellular pertussis vaccine, adsorbed No Primary Care Physician [facility] Payers Date Payer Category Payer Medicare [id number] 2024 Self-pay Unknown [id number] Unknown [id number] Unknown [id number] Unknown [id number] Unknown [id number] Unknown [id number] Social History Date Type Detail Facility Start: 12-09-2024 Tobacco smoking status NHIS Smokes tobacco daily (finding) [facility] Start: 04-27-2017 Alcohol Alcohol [facility] Start: 04-27-2017 Lives Lives [facility] Start: 04-27-2017 Tobacco Use Tobacco Use [facility] Start: 1960 Sex Assigned At Male [facility] NEGATED: Highlighted rowStart: 12-05-2019 End: 12-05-2019 Alcohol use Alcohol use [facility] Work Phone: NEGATED: Highlighted rowStart: 12-05-2019 End: 12-05-2019 Assertion Current every day smoker [facility] Work Phone: NEGATED: Highlighted rowStart: 12-05-2019 End: 12-05-2019 Details of drug misuse behavior Details of drug misuse behavior [facility] Work Phone: NEGATED: Highlighted rowStart: 12-05-2019 End: 12-05-2019 Tobacco use and exposure Tobacco use and exposure [facility] Work Phone: Evaluation note 12-09-2024 Note Date & Type Note Facility 12-09-2024 Evaluation note Diagnosis Onset Date Resolution Degenerative disc disease (DDD) of lumbar region with discogenic back pain acute December 09, 2024 7: 57am History of back surgery acute M ay 2024 7:57am [facility] Work Phone: Evaluation note 12-09-2024 Note Date & Type Note Facility 12-09-2024 Evaluation note Diagnosis Onset Date Resolution Degenerative disc disease (DDD) of lumbar region with discogenic back pain acute December 09, 2024 7: 57am History of back surgery acute M ay 2024 7:57am Degenerative disc disease (DDD) of lumbar region with discogenic back pain acute March 02, 2025 7:57am Foraminal stenosis of lumbar region acute March 02, 2025 7:57am Kyphosis acute March 02 7:57am [facility] Work Phone: Reason for referral (narrative) Note Date & Type Note Facility Reason for referral (narrative) No reason for referral information available [facility] Work Phone: Summary Purpose Family History No Family History Records Found Relationship Condition Age at Onset Recorded Date/T [place] Unknown Family History?No pe rtinent history Unknown April 27, 2017 11:12am Advance Directives No Advanced Directives Records FoundThere may be information available, but it has not been provided by the sender.No Advanced Directives Records Found Chief Complaint Chief Complaint Description Start Date lower back pain Preliminary chief co mplaint data, not yet signed by the author as of Assessments There may be information available, but it has not been provided by the sender. Review of System There may be information available, but it has not been provided by the sender. History of Present Illness There may be information available, but it has not been provided by the sender. Chief Complaint and Reason for Visit Chief Complaint Admit Date LUMBAR SPINE December 09, 2024 7:57am Room 3 December 09, 2024 8:18am LUMBAR PAIN January 24, 2025 4:13 pm Reason for Visit Admit Date Degenerative disc disease (D DD) of lumbar region with discogenic back pain December 09, 2024 7:57am History of back surgery December 09, 2024 7: 57am Chief Complaint Admit Date LUMBAR SPINE December 09, 2024 7:57am Room 3 December 09, 2024 8:18am LUMBAR PAIN January 24, 2025 4:13 pm LUMBAR SPINE March 02, 2025 7:57 am Reason for Visit Admit Date Degenerative disc disease (D DD) of lumbar region with discogenic back pain December 09, 2024 7:57am History of back surgery December 09, 2024 7: 57am Degenerative disc disease (D DD) of lumbar region with discogenic back pain March 02, 2025 7:57am Foraminal stenosis of lumbar region March 02, 2025 7:57am Kyphosis March 02, 2025 7:57 am Additional Source Comments (unrecognized sect ion and content) No Status Records FoundNo Status Records Found INFORMATION SOURCE (unrecogn ized section and content) DATE CREATED AUTHOR 01/27/2018 [facility] DATE CREATED AUTHOR AUTHOR'S ORGANIZ ATION 04/05/2025 [facility] Reason for Visit (unrecogniz ed section and content) Reason For Visit Description New - 1st visit with practice Preliminary reason f or visit data, not yet signed by the author as of lower back pain Care Teams (unrecognized sec tion and content) Team Status: Active Member Role/Relationship Status Dates No Primary Care Physician Primary Care Provider Active Team Status: Inactive Member Role/Relationship Status Dates No Primary Care Physician Primary Care Provider Active Start: December 09, 2024 End: December 09, 2024 No Primary Care Physician Referring Provider Active Start: December 09, 2024 End: December 09, 2024 DARIUS Song Attending Provider Active Star t: December 09, 2024 End: December 09, 2024 Team Status: Inactive Member Role/Relationship Status Dates No Primary Care Physician Primary Care Provider Active Start: December 09, 2024 End: December 09, 2024 Dr. Juan J Ontiveros MD Attending Provider Active S tart: December 09, 2024 End: December 09, 2024 Team Status: Inactive Member Role/Relationship Status Dates No Primary Care Physician Primary Care Provider Active Start: January 24, 2025 End: January 24, 2025 DARIUS Song Attending Provider Active Star t: January 24, 2025 End: January 24, 2025 DARIUS Song Referring Provider Active Star t: January 24, 2025 End: January 24, 2025 Team Status: Inactive Member Role/Relationship Status Dates No Primary Care Physician Primary Care Provider Active Start: March 02, 2025 End: March 02, 2025 No Primary Care Physician Referring Provider Active Start: March 02, 2025 End: March 02, 2025 Dr. Rm Alcantar MD Attending Provider Active Start: March 02, 2025 End: March 02, 2025 Goals (unrecognized section and content) Goals may be documented in a n alternate sectionGoals may be documented in an alternate section FOR RECORDS PERTAINING TO PATIENTS WHO ARE OR HAVE BEEN ENROLLED IN A CHEMICAL DEPENDENCY/SUBSTANCEABUSE PROGRAM, SOME INFORMATION MAY BE OMITTED. This clinical summary was aggregated from multiple sources. Caution should be exercised in using it in the provision of clinical care. This summary normalizes information from multiple sources, and as a consequence, information in this document may materially change the coding, format and clinical context of patient data. In addition, data may be omitted in some cases. CLINICAL DECISIONS SHOULD BE BASED ON THE PRIMARY CLINICAL RECORDS. [employer] provides no warranty or guarantee of the accuracy or completeness of information in this document.
[2025-04-28 10:20] LABS: Hematocrit 50.3 % (40-54); Hemoglobin 17.3 g/dL (13.0-16.5); Immature Granulocytes Count 0.060 X10^3/uL (0.0-0.0); Mean Corp Hgb Conc 34.4 g/dL (32-36); Mean Corpuscular Volume 94.9 fL (80-94); Mean Platelet Vol. 9.7 fl (6.2-12.0); NRBC Flagged by Analyzer 0 % (0-5); Platelet Count 355 K/mm3 (150-450); RBC Distribution Width CV 13.8 % (11.6-14.6); RBC Distribution Width SD 48.4 fl (35.1-43.9); Red Blood Count 5.30 M/mm3 (4.6-6.2); White Blood Count 14.0 K/mm3 (4.4-11.0)
[2025-04-28 10:51] LABS: Anion Gap 10 (5-15); BUN 11 mg/dL (4-19); BUN/Creat Ratio 17.1 RATIO (10-20); Calcium,Total 8.8 mg/dL (7.6-11.0); Carbon Dioxide 26.8 mmol/L (21.0-32.0); Chloride 104 mmol/L (98-108); Cholesterol 172 mg/dL (<=200); Glucose 98 mg/dL (70-99); Low Density Lipoprotein Calc. 84 mg/dL; PSA,Total- Diagnostic 1.15 ng/mL (0.00-4.00); Potassium 4.5 mmol/L (3.3-5.1); Triglycerides 46 mg/dL; Very Low Density Lipoprotein 9 mg/dL (5-40); cholesterol:hdl ratio screen 2.17
== END | disposition home or self-care (01) ==
PROVIDERS: Referring Provider Family Medicine; Visit Provider Family Medicine
DX: Z00.00 Encounter for general adult medical examination without abnormal findings (principal)
CPT/HCPCS: 36415; 80048; 80061; 84153; 85025

== ENCOUNTER → 2025-06-23 | Outpatient (CLI) | payer MEDICARE, SELFPAY ==
[2025-06-23 12:15] LABS: Hematocrit 51.1 % (40-54); Hemoglobin 17.1 g/dL (13.0-16.5); Immature Granulocytes Count 0.030 X10^3/uL (0.0-0.0); Mean Corp Hgb Conc 33.5 g/dL (32-36); Mean Corpuscular Volume 94.6 fL (80-94); Mean Platelet Vol. 9.7 fl (6.2-12.0); NRBC Flagged by Analyzer 0 % (0-5); Platelet Count 318 K/mm3 (150-450); RBC Distribution Width CV 13.9 % (11.6-14.6); RBC Distribution Width SD 48.8 fl (35.1-43.9); Red Blood Count 5.40 M/mm3 (4.6-6.2); White Blood Count 10.3 K/mm3 (4.4-11.0)
[2025-06-23 12:34] LABS: AST(SGOT) 28 U/L (<=37); Alanine Aminotransfer ALT/SGPT 15 U/L (<=46); Albumin, Serum 4.1 g/dL (3.4-4.8); Alkaline Phosphatase 71 U/L (40-129); Anion Gap 9 (5-15); BUN 16 mg/dL (4-19); BUN/Creat Ratio 23.0 RATIO (10-20); Calcium,Total 8.6 mg/dL (7.6-11.0); Carbon Dioxide 27.2 mmol/L (21.0-32.0); Chloride 101 mmol/L (98-108); Globulin 2.2 g/dL (2.2-4.2); Glucose 93 mg/dL (70-99); Potassium 4.4 mmol/L (3.3-5.1)
== END | disposition home or self-care (01) ==
LOC: MFPLAB 10:25
PROVIDERS: PCP Family Medicine; Visit Provider Family Medicine
DX: Z01.818 Encounter for other preprocedural examination (principal)
CPT/HCPCS: 36415; 80053; 85025

== ENCOUNTER 2025-07-11 13:39 | Inpatient (IN) | payer MEDICARE, SELFPAY ==
--- NOTE | 2025-06-27 12:39 | PAT.ANE_ITS ---
Pre-Assessment Diagnosis/Proposed Procedure Planned Operative Procedure(s): 360 Lumbar Fusion L4-5 and L5-S1 Anesthesia History Anesthesia History - educational consultant: Anesthesia History - educational consultant Hx Hospitalization No 06/26/25 14:51 Any Problems With Anesthesia No 06/26/25 14:51 Cholinesterase deficiency No 06/26/25 14:51 You/Your Family Experience No 06/26/25 14:51 fever (hyperthermia) with Relationship Recent Exposure to Contagious Disease Does patient have nerve No 06/26/25 14:51 stimulator Patient instructed to have device shut off --Does patient have Pacemaker or ICD? When Was Last Pacemaker Check QUESTION #4 FULL TEXT: You/Your Family Experience fever (hyperthermia) with Anesthesia Last Oral Intake Last Oral intake: Last Oral Intake NPO since Meds taken in AM with sips of water? Meds patient instructed to take am of surgery PONV PONV - educational consultant: PONV - educational consultant Female No 06/26/25 14:51 HX of Motion Sickness Yes 06/26/25 14:51 HX of N/V After Surgery No 06/26/25 14:51 Non-Smoker No 06/26/25 14:51 Duration of Surgery greater Yes 06/26/25 14:51 than 60 minutes Number of Risk Factors 2 06/26/25 14:51 PONV Score Moderate Risk 06/26/25 14:51 Height & Weight Height & Weight: Anesthesia: Height & Weight Height 5 ft 10 in 12/09/24 08:07 Respiratory Assessment Respiratory Assessment - educational consultant: Respiratory Tract Infection Hx - educational consultant Hx Respiratory Tract Infection No 06/26/25 14:51 STOP Sleep Apnea STOP Sleep Apnea - educational consultant: STOP Sleep Apnea - educational consultant Hx Hypertension No 06/26/25 14:51 Hx Sleep Apnea No 06/26/25 14:51 CPAP BIPAP Do you snore loudly (louder No 06/26/25 14:51 than talking or can be heard Do you often feel tired/ No 06/26/25 14:51 fatigued/ sleepy during daytime? Has anyone observed you stop No 06/26/25 14:51 breathing during sleep? STOP Results Negative 06/26/25 14:51 QUESTION #5 FULL TEXT : Do you snore loudly (louder than talking or can be heard through closed doors)? 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 Specify any problems Hx of Preganancy in last 3 N/A 06/26/25 14:51 Months Nurse Filling Out Transfusion JZOLLINGE 06/26/25 14:51 & Questions: Date: 06/26/25 06/26/25 14:51 Time: 14:52 06/26/25 14:51 Patient unable to answer at this time (ie. confused, unrespo /Reproduction History /Reproductive History - educational consultant: /Reproductive Hx- educational consultant Hx Now No 06/26/25 14:51 Gestational Age (in weeks): EDC: Hx Hx Para Hx Section SAB No 06/26/25 14:51 Does the father of the baby or his family experience fever w Father of the baby Malignant Hypertension history comment [facility] Medical History (Updated 06/26/25 @ 14:50 by Starr Guerrero) Wears glasses Smoker Kyphosis Foraminal stenosis of lumbar region Home Medications ?Medication ?Instructions ?Recorded ?Last Taken ?Type acetaminophen 500 mg tablet 1,000 mg (2 x 500 mg) PO Q 8H PRN 04/27/17 Unknown Rx PRN pain not controlled with Mobic #30 tabs meloxicam 7.5 mg tablet 7.5 mg PO QDAY pain 12/09/24 Unknown History methocarbamol 500 mg tablet 500 mg PO .qd spasm Unknown History Allergy/AdvReac Type Severity Reaction Status Date / Time bee venom protein (honey AdvReac Other Verified 06/20/25 11:07 bee) (bee sting) Surgical History History of back surgery Social History household members: spouse Smoking Status: Light Smoker (<10/day) alcohol intake: current alcohol intake frequency: a few times a week Audit: Pertinent Findings Pertinent Findings EKG Perinent findings: 04/2025: SR with occasional supraventricular premature complexes, possible left atrial enlargement Recommendation Anesthesia Recommendation Anesthesia recommendation: OPTIMIZED for anesthesia
[2025-06-28 17:10] LABS: Hematocrit 47.9 % (40-54); Hemoglobin 16.6 g/dL (13.0-16.5); Immature Granulocytes Count 0.030 X10^3/uL (0.0-0.0); Mean Corp Hgb Conc 34.7 g/dL (32-36); Mean Corpuscular Volume 92.3 fL (80-94); Mean Platelet Vol. 9.6 fl (6.2-12.0); NRBC Flagged by Analyzer 0 % (0-5); Platelet Count 325 K/mm3 (150-450); RBC Distribution Width CV 13.8 % (11.6-14.6); RBC Distribution Width SD 47.4 fl (35.1-43.9); Red Blood Count 5.19 M/mm3 (4.6-6.2); White Blood Count 11.5 K/mm3 (4.4-11.0)
[2025-06-28 17:11] LABS: AST(SGOT) 28 U/L (<=37); Alanine Aminotransfer ALT/SGPT 16 U/L (<=46); Albumin, Serum 4.3 g/dL (3.4-4.8); Alkaline Phosphatase 76 U/L (40-129); Anion Gap 12 (5-15); BUN 12 mg/dL (4-19); BUN/Creat Ratio 18.7 RATIO (10-20); Calcium,Total 8.7 mg/dL (7.6-11.0); Carbon Dioxide 25.2 mmol/L (21.0-32.0); Chloride 98 mmol/L (98-108); Globulin 2.0 g/dL (2.2-4.2); Glucose 80 mg/dL (70-99); Magnesium 2.2 mg/dL (1.5-2.2); Potassium 4.8 mmol/L (3.3-5.1)
[2025-07-11] VITALS (19 sets, daily range): BP systolic 111–145; BP diastolic 65–92; PULSE 74–101; RESP 14–18; TEMP 36.2–37.2; O2SAT 94–100; BMI 25.2
--- OUTSIDE RECORDS SUMMARY | 2025-07-11 05:33 | XMS RPT_ITS | CCD ---
Author Organization [facility] CliniSyvt Care Team Providers Care Cash Posting Representative Name Role Phone Ike Donovan Unavailable Unavailable Yung VEGA, Gerber Wilde Unavailable SARAH WATKINS Unavailable Unavailable JENNIFER PICKETT Unavailable Unavailable [place] VEGA, Merrill Addison Unavailable [phone] Care Physician, No Primary Primary Care Provider Unavailable Care Physician, No Primary Referring Provider Un available Jana Barrera Attending Provider Dr. Juan J Ontiveros MD Attending Provider Jana Barrera Referring Provider Dr. Rm Alcantar MD Attending Provider Care Physician, No Primary Primary Care Physicia n Unavailable Jana Barrera Attending Physician Care Physician, No Primary Referring Provider Un available Dr. Rm Alcantar MD Attending Physician Dr. Mukesh Bacon MD Attending Physician [phone] Mukesh Bacon MD Referring Provider Mukesh Bacon Attending Unavailable Mukesh Bacon Referring Unavailable Care Physician, No Primary Primary Care Unava ilable Jana Colin Attending Unavailable Care Physician, No Primary Primary Care Unava ilable Care Physician, No Primary Referring Unava ilable Juan J Ontiveros Attending Unavailable Care Physician, No Primary Primary Care Unava ilable Rm Alcantar Attending Unavailable Care Physician, No Primary Primary Care Unava ilable Care Physician, No Primary Referring Unava ilable Rm Alcantar Attending Unavailable Care Physician, No Primary Primary Care Unava ilable Rm Alcantar Admitting Unavailable Jana Colin Attending Unavailable Jana Colin Referring Unavailable Care Physician, No Primary Primary Care Unava ilable Allergies Allergy Classification Reported Allergen(s) Allergy Type Date of Onset Reaction(s) Facility (3 sources) bee venom protein (honey bee) Propensity to adverse reactions 5 Other [facility] (1 source) bee venom protein (honey bee) Drug allergy (disorder) 5 [facility] Repository Medications Current Medications Medication Drug Class(es) Dates Sig (Normalized) Sig (Original) meloxicam 7.5 mg oral tablet (17 sources) Nonsteroidal Anti-inflammatory Drug Start: 12-09-2024 take 1 tablet by mouth once daily Start: 05-01-2017 End: 05-01-2017 MELOXICAM 7.5 MG TABS 1 tabl et daily prn MELOXICAM [id number] Gerber Barragan MD Start: 04-26-2017 End: 12-09-2024 take 1 tablet by mouth once daily Meloxicam 15 MG tablet Discontinued 15 mg PO DAILY 01 09October 01, 2017 1:02pm December 09, 2024 8:08am methocarbamol 500 mg oral tablet (3 sources) Muscle Relaxant Start: 12-09-2024 take 1 tablet by mouth twice daily Completed/Discontinued Medications Medication Drug Class(es) Dates Sig (Normalized) Sig (Original) acetaminophen 325 mg oral tablet (5 sources) Start: 05-01-2017 TYLENOL 325 MG CAPS take as directed ACETAMINOPHEN [id number] Gerber Barragan MD Start: 04-27-2017 take 1-2 tablets by mouth every eight hours as needed for pain cyclobenzaprine hydrochloride 10 mg oral tablet (1 source) Muscle Relaxant Start: 12-05-2019 take 1 tablet by mouth once daily as needed CYCLOBENZAPRINE HCL 10 MG TABS 1 tablet by mouth once daily as needed CYCLOBENZAPRINE HCL [id number] Merrill Osborne MD pregabalin 75 mg oral capsule (1 source) Start: 12-05-2019 take 1 tablet by mouth twice daily LYRICA 75 MG CAPS 1 tablet by mouth twice daily PREGABALIN [id number] Merrill Osborne MD traMADol hydrochloride 50 mg oral tablet (1 source) Opioid Agonist Start: 12-05-2019 take 1 tablet by mouth once daily as needed TRAMADOL HCL 50 MG TABS 1 tablet by mouth once daily as needed TRAMADOL HCL [id number] Merrill Osborne MD Problems Active Problems Problem Classification Problem Date Documented Date Episodic/Chronic Cardiac dysrhythmias (3 sources) Sinus tachycardia; Translations: [Tachycardia, unspecified] 04-27-2017 Episodic Diabetes mellitus without complication (3 sources) Hyperglycemia; Translations: [Hyperglycemia, unspecified] 04-27-2017 Episodic Fluid and electrolyte disorders (3 sources) Dehydration; Translations: [Dehydration] 04-27-2017 Episodic Other acquired deformities (4 sources) Kyphosis deformity of spine; Translations: [Unspecified kyphosis, site unspecified] 03-02-2025 Chronic Other connective tissue disease (3 sources) Weakness of left hand; Translations: [Other symptoms and signs involving the musculoskeletal system] 04-27-2017 Episodic Other screening for suspected conditions (not mental disorders or infectious disease) (3 sources) Decreased thyroid stimulating hormone level; Translations: [Other specified abnormal findings of blood chemistry] 04-27-2017 Episodic Residual codes; unclassified (5 sources) H/O Spinal surgery; Translations: [Other specified postprocedural states] 12-09-2024 Episodic Residual codes; unclassified (1 source) Other specified postprocedural states; Translations: [Other specified postprocedural states] Onset: 12-05-2019 12-05-2019 Residual codes; unclassified (1 source) Harmful pattern of use of nicotine; Translations: [Tobacco use] Onset: 12-05-2019 12-05-2019 Spondylosis; intervertebral disc disorders; other back problems (7 sources) Degeneration of lumbar intervertebral disc; Translations: [Degenerative disc disease (DDD) of lumbar region with discogenic back pain and leg pa] 12-09-2024 Chronic Spondylosis; intervertebral disc disorders; other back problems (8 sources) Lumbosacral stenosis; Translations: [Low back pain] Onset: 12-05-2019 12-05-2019 Episodic Syncope (5 sources) Syncope; Translations: [Syncope and collapse] Onset: [...] Other Problems Problem Classification Problem Date Documented Date Episodic/Chronic Medical examination/evaluatio n (2 sources) Encounter for general adult medical examination without abnormal findings; Translations: [Encounter for general adult medical examination without abnormal findings] Onset: 05-01-2017 05-01-2017 Episodic Other non-traumatic joint disorders (2 sources) Hemarthrosis, left knee; Translations: [Pain in left knee] Onset: 02-02-2017 Episodic Residual codes; unclassified (1 source) Other specified postprocedural states; Translations: [Other specified postprocedural states] Onset: 01-05-2025 Episodic Unclassified (1 source) Problem Results Test Name Value Interpretation Reference Range Facility Absolute lymphocyte countOrd ered By: Mukesh Bacon on 04-28-2025 Lymphocytes Auto (Unsp spec) [#/Vol] 3.49 10*3/uL 0.83-4.51 [facility] Absolute neutrophil countOrd ered By: Mukesh Bacon on 04-28-2025 Neutrophils (Bld) [#/Vol] 9.2 10*3/uL High 2.0-7.7 [facility] Anion gap in Serum or Plasma Ordered By: Mukesh Bacon on 04-28-2025 Anion gap [Moles/Vol] 10 mmol/L 5-15 [facility] Automated lymphocyte count a s percentage of total leukocytesOrdered By: Mukesh Bacon on 04-28-2025 Lymphocytes/100 WBC Auto (Unsp spec) 24.9 % - [facility] BUN/creatinine ratioOrdered By: Mukesh Bacon on 04-28-2025 Urea nitrogen/Creatinine [Mass ratio] 17.1 mg/mg - [facility] Basic Metabolic Profile (BMP )on 04-28-2025 BUN/CRE 17.1 RATIO Normal 05-22 [facility] Comment on above: Performed By: #### L 100.0100, L500.4100, L500.2500, L501.9940 #### [facility] [place], [address] Calcium [Mass/Vol] 8.8 mg/dL Normal 7.6-11.0 [facility] Comment on above: Performed By: #### L 100.0100, L500.4100, L500.2500, [id number] #### [facility] [address] [place], [address] Chloride [Moles/Vol] 104 mmol/L Normal 98-108 [facility] Comment on above: Performed By: #### L 100.0100, L500.4100, L500.2500, [id number] #### [facility] [address] [place], [address] CO2 [Moles/Vol] 26.8 mmol/L Normal 21.0-32.0 [facility] Comment on above: Performed By: #### L 100.0100, L500.4100, L500.2500, [id number] #### [facility] [address] [place], [address] Creatinine [Mass/Vol] 0.62 mg/dL Low 0.70-1.20 [facility] Comment on above: Performed By: #### L 100.0100, L500.4100, L500.2500, [id number] #### [facility] [address] [place], [address] GAP 10 Normal 5-15 [facility] Comment on above: Performed By: #### L 100.0100, L500.4100, L500.2500, [id number] #### [facility] [address] [place], [address] GFR/1.73 sq M.predicted among non-blacks MDRD (S/P/Bld) [Vol rate/Area] 105 mL/min/{1.73_m2} Normal >60 [facility] Comment on above: Result Comment: mL/m in/1.73m2 CKD-EPI Creatinine Equation (2020) Performed By: #### L 100.0100, L500.4100, L500.2500, [id number] #### [facility] [address] [place], [address] Glucose [Mass/Vol] 98 mg/dL Normal 70-99 [facility] Comment on above: Performed By: #### L 100.0100, L500.4100, L500.2500, [id number] #### [facility] [address] [place], [address] Potassium [Moles/Vol] 4.5 mmol/L Normal 3.3-5.1 [facility] Comment on above: Performed By: #### L 100.0100, L500.4100, L500.2500, [id number] #### [facility] [address] [place], [address] Sodium [Moles/Vol] 141 mmol/L Normal 133-145 [facility] Comment on above: Performed By: #### L 100.0100, L500.4100, L500.2500, [id number] #### [facility] [address] [place], [address] Urea nitrogen [Mass/Vol] 11 mg/dL Normal 4-19 [facility] Comment on above: Performed By: #### L 100.0100, L500.4100, L500.2500, [id number] #### [facility] [address] [place], [address] Basophil percentageOrdered B y: Mukesh Bacon on 04-28-2025 Basophils/100 WBC (Bld) 1.0 % 0-1 [facility] CBC W/Diff, Automatedon 04-04 Absolute Lymph 3.49 X10 3/uL Normal 0.83-4.51 [facility] Comment on above: Performed By: #### L 100.0100, L500.4100, L500.2500, [id number] #### [facility] [address] [place], [address] Absolute Neut 9.2 X10 3/uL High 2.0-7.7 [facility] Comment on above: Performed By: #### L 100.0100, L500.4100, L500.2500, [id number] #### [facility] [address] [place], [address] Basophils/100 WBC (Bld) 1.0 % Normal 0-1 [facility] Comment on above: Performed By: #### L 100.0100, L500.4100, L500.2500, [id number] #### [facility] [address] [place], [address] Eosinophils/100 WBC (Bld) 1.2 % Normal 0-5 [facility] Comment on above: Performed By: #### L 100.0100, L500.4100, L500.2500, [id number] #### [facility] [address] [place], [address] Erythrocyte distribution width (RBC) [Ratio] 13.8 % Normal 11.6-14.6 [facility] Comment on above: Performed By: #### L 100.0100, L500.4100, L500.2500, [id number] #### [facility] [address] [place], [address] Hematocrit (Bld) [Volume fraction] 50.3 % Normal 40-54 [facility] Comment on above: Performed By: #### L 100.0100, L500.4100, L500.2500, [id number] #### [facility] [address] [place], [address] Hemoglobin (Bld) [Mass/Vol] 17.3 g/dL High 13.0-16.5 [facility] Comment on above: Performed By: #### L 100.0100, L500.4100, L500.2500, [id number] #### [facility] [address] [place], [address] IG% 0.400 Normal 0.0-0.9 [facility] Comment on above: Result Comment: IG% - Immature Granulocytes (promyelocytes, myelocytes and metamyelocytes) > 1% indicates that a LEFT SHIFT is Present. Performed By: #### L 100.0100, L500.4100, L500.2500, [id number] #### [facility] [address] [place], [address] Lymphocytes/100 WBC (Bld) 24.9 % Normal 19-41 [facility] Comment on above: Performed By: #### L 100.0100, L500.4100, L500.2500, [id number] #### [facility] [address] [place], [address] MCH (RBC) [Entitic mass] 32.6 pg High 27.0-32.0 [facility] Comment on above: Performed By: #### L 100.0100, L500.4100, L500.2500, [id number] #### [facility] [address] [place], [address] MCHC (RBC) [Mass/Vol] 34.4 g/dL Normal 32-36 [facility] Comment on above: Performed By: #### L 100.0100, L500.4100, L500.2500, [id number] #### [facility] [address] [place], [address] MCV (RBC) [Entitic vol] 94.9 fL High 80-94 [facility] Comment on above: Performed By: #### L 100.0100, L500.4100, L500.2500, [id number] #### [facility] [address] [place], [address] Monocytes/100 WBC (Bld) 6.4 % Normal 0-10 [facility] Comment on above: Performed By: #### L 100.0100, L500.4100, L500.2500, [id number] #### [facility] [address] [place], [address] Neutrophils/100 WBC (Bld) 66.1 % Normal 47-70 [facility] Comment on above: Performed By: #### L 100.0100, L500.4100, L500.2500, [id number] #### [facility] [address] [place], [address] Nucleated RBC (Bld) [#/Vol] 0 10*3/uL Normal 0-5 [facility] Comment on above: Performed By: #### L 100.0100, L500.4100, L500.2500, [id number] #### [facility] [address] [place], [address] Platelet mean volume (Bld) [Entitic vol] 9.7 fL Normal 6.2-12.0 [facility] Comment on above: Performed By: #### L 100.0100, L500.4100, L500.2500, [id number] #### [facility] [address] [place], [address] Platelets (Bld) [#/Vol] 355 10*3/uL Normal 150-450 [facility] Comment on above: Performed By: #### L 100.0100, L500.4100, L500.2500, [id number] #### [facility] [address] [place], [address] RBC (Bld) [#/Vol] 5.30 10*6/uL Normal 4.6-6.2 [facility] Comment on above: Performed By: #### L 100.0100, L500.4100, L500.2500, [id number] #### [facility] [address] [place], [address] RDW SD 48.4 fl High 35.1-43.9 [facility] Comment on above: Performed By: #### L 100.0100, L500.4100, L500.2500, [id number] #### [facility] [address] [place], [address] WBC (Bld) [#/Vol] 14.0 10*3/uL High 4.4-11.0 [facility] Comment on above: Performed By: #### L 100.0100, L500.4100, L500.2500, [id number] #### [facility] [address] [place], [address] Calculated very low density lipoprotein (VLDL) cholesterol measurementOrdered By: Mukesh Bacon on 04-28-2025 Calculated very low density lipoprotein (VLDL) cholesterol measurement 9 mg/dL 5-40 [facility] Carbon dioxide, total [Moles /volume] in Central venous bloodOrdered By: Mukesh Bacon on 04-28-2025 CO2 [Moles/Vol] 26.8 mmol/L 21.0-32.0 [facility] Chloride assayOrdered By: Elver Bacon on 04-28-2025 Chloride [Moles/Vol] 104 mmol/L 98-108 [facility] Eosinophil percentageOrdered By: Mukesh Bacon on 04-28-2025 Eosinophils/100 WBC (Bld) 1.2 % 0-5 [facility] Erythrocyte distribution wid th ratioOrdered By: Mukesh Bacon on 04-28-2025 Erythrocyte distribution width (RBC) [Ratio] 13.8 % 11.6-14.6 [facility] Erythrocyte distribution wid th standard deviationOrdered By: Mukesh Bacon on 04-28-2025 Erythrocyte distribution width (RBC) [Ratio] 48.4 fl High 35.1-43.9 [facility] Glomerular filtration rate ( GFR) estimation/1.73 sq m using serum, plasma, or whole bOrdered By: Mukesh Bacon on 04-28-2025 GFR/1.73 sq M.predicted among non-blacks MDRD (S/P/Bld) [Vol rate/Area] 105 mL/min/{1.73_m2} >60 [facility] Comment on above: mL/min/1.73m2 CKD-EP I Creatinine Equation (2020) Hematocrit Auto (Bld) [Volum e fraction]Ordered By: Mukesh Bacon on 04-28-2025 Hematocrit (Bld) [Volume fraction] 50.3 % 40-54 [facility] Hemoglobin measurementOrdere d By: Mukesh Bacon on 04-28-2025 Hemoglobin (Bld) [Mass/Vol] 17.3 g/dL High 13.0-16.5 [facility] Immature granulocytes/100 WB C Auto (Bld)Ordered By: Mukesh Bacon on 04-28-2025 Immature granulocytes/100 WBC (Bld) 0.400 % 0.0-0.9 [facility] Comment on above: IG% - Immature Granu locytes (promyelocytes, myelocytes and metamyelocytes) > 1% indicates that a LEFT SHIFT is Present. LDL calc ser/plasOrdered By: Mukesh Bacon on 04-28-2025 Cholesterol in LDL [Mass/Vol] 84 mg/dL [facility] Comment on above: Owbpbovauc=924-374 m g/dL & Higher Qenn=083 mg/dL or greaterFriedwald Equation for LDL-C Lipid Profileon 04-28-2025 CHOL:HDL 2.17 Normal [facility] Comment on above: Performed By: #### L 100.0100, L500.4100, L500.2500, [id number] #### [facility] [place], [address] Cholesterol [Mass/Vol] 172 mg/dL Normal <=200 [facility] Comment on above: Result Comment: Chol esterol level, Desirable <200 mg/dL Borderline high cholesterol 200-239 mg/dL High cholesterol >=240 mg/dL Recommendations of the NCEP Adult Treatment Panel for the following risk-cutoff thresholds for the [place] population. Performed By: #### L 100.0100, L500.4100, L500.2500, [id number] #### [facility] [address] [place], [address] Cholesterol in HDL [Mass/Vol] 79 mg/dL Normal [facility] Comment on above: Result Comment: Tanesha onal Cholesterol Education Program (NCEP) guidelines: <40 mg/dL: Low HDL-cholesterol (major risk factor for CHD) >= 60 mg/dL: High HDL-cholesterol (negative risk factor for CHD) HDL-cholesterol is affected by a number of factors, e.g. smoking, exercise, hormones, sex and age. Performed By: #### L 100.0100, L500.4100, L500.2500, [id number] #### [facility] [address] [place], [address] Cholesterol in LDL [Mass/Vol] 84 mg/dL Normal [facility] Comment on above: Result Comment: Bord qfwvpb=574-558 mg/dL Higher Eaax=905 mg/dL or greater Friedwald Equation for LDL-C Performed By: #### L 100.0100, L500.4100, L500.2500, [id number] #### [facility] [address] [place], [address] Cholesterol in VLDL [Mass/Vol] 9 mg/dL Normal 5-40 [facility] Comment on above: Performed By: #### L 100.0100, L500.4100, L500.2500, [id number] #### [facility] [address] [place], [address] Triglyceride [Mass/Vol] 46 mg/dL Normal [facility] Comment on above: Result Comment: The drugs N-Acetylcysteine and Metamizole may falsely depress this assay. Normal range: <150 mg/dL Borderline High: 150-199 mg/dL High: 200-499 mg/dL Very High: >500 mg/dL Performed By: #### L 100.0100, L500.4100, L500.2500, [id number] #### [facility] [address] [place], [place], [id number] MCV (mean corpuscular volume ) determinationOrdered By: Mukesh Bacon on 04-28-2025 MCV (RBC) [Entitic vol] 94.9 fL High 80-94 [facility] Mean corpuscular hemoglobin (MCH) determinationOrdered By: Mukesh Bacon on 04-28-2025 MCH (RBC) [Entitic mass] 32.6 pg High 27.0-32.0 [facility] Mean corpuscular hemoglobin concentration (MCHC) determinationOrdered By: Mukesh Bacon on 04-28-2025 MCHC (RBC) [Mass/Vol] 34.4 g/dL 32-36 [facility] Mean platelet volume determi nationOrdered By: Mukesh Bacon on 04-28-2025 Platelet mean volume (Bld) [Entitic vol] 9.7 fL 6.2-12.0 [facility] Monocyte percentageOrdered B y: Mukesh Bacon on 04-28-2025 Monocytes/100 WBC (Bld) 6.4 % 0-10 [facility] Neutrophil percentageOrdered By: Mkuesh Bacon on 04-28-2025 Neutrophils/100 WBC (Bld) 66.1 % 47-70 [facility] Nucleated red blood cell per centageOrdered By: Mukesh Bacon on 04-28-2025 Nucleated RBC/100 WBC (Bld) [Ratio] 0 % 0-5 [facility] PSA,Total- Diagnosticon 04-04 PSA, DIAGNOSTIC 1.15 ng/mL Normal 0.00-4.00 [facility] Comment on above: Result Comment: This test was performed using the [employer] tPSA method. Measured values of a patient??sample can vary depending on the testing procedure used. PSA values determined on patient samples by different testing procedures cannot be used interchangeably. If there is a change in PSA assays while monitoring therapy, sequential testing should be performed to confirm baseline values. Performed By: #### L 100.0100, L500.4100, L500.2500, L501.9940 #### [facility] [address] [place], [place], [id number] Platelet countOrdered By: Elver Bacon on 04-28-2025 Platelets (Bld) [#/Vol] 355 10*3/uL 150-450 [facility] Potassium measurement (mass/ volume)Ordered By: Mukesh Bacon on 04-28-2025 Potassium (Unsp spec) [Mass/Vol] 4.5 mmol/L 3.3-5.1 [facility] RBC Auto (Bld) [#/Vol]Ordere d By: Mukesh Bacon on 04-28-2025 RBC (Bld) [#/Vol] 5.30 10*6/uL 4.6-6.2 [facility] Screening total cholesterol/ high density lipoprotein (HDL) cholesterol ratioOrdered By: Mukesh Bacon on 04-28-2025 Cholesterol.total/Chol esterol in HDL [Mass ratio] 2.17 {ratio} [facility] Serum creatinine measurement (mass/volume)Ordered By: Mukesh Bacon on 04-28-2025 Creatinine [Mass/Vol] 0.62 mg/dL Low 0.70-1.20 [facility] Serum glucose measurement (m ass/volume)Ordered By: Mukesh Bacon on 04-28-2025 Glucose [Mass/Vol] 98 mg/dL 70-99 [facility] Serum or plasma calcium mando urement (mass/volume)Ordered By: Mukesh Bacon on 04-28-2025 Calcium [Mass/Vol] 8.8 mg/dL 7.6-11.0 [facility] Serum or plasma cholesterol in HDL measurement (mass/volume)Ordered By: Mukesh Bacon on 04-28-2025 Cholesterol in HDL [Mass/Vol] 79 mg/dL >40 [facility] Comment on above: National Cholesterol Education Program (NCEP) guidelines:<40 mg/dL: Low HDL-cholesterol (major risk factor for CHD)>= 60 mg/dL: High HDL-cholesterol (negative risk factor for CHD)HDL-cholesterol is affected by a number of factors, e.g. smoking, exercise, hormones, sex and age. Serum or plasma cholesterol measurement (mass/volume)Ordered By: Mukesh Bacon on 04-28-2025 Cholesterol [Mass/Vol] 172 mg/dL <201 [facility] Comment on above: Cholesterol level, D esirable <200 mg/dLBorderline high cholesterol 200-239 mg/dLHigh cholesterol >=240 mg/dLRecommendations of the NCEP Adult Treatment Panel for the following risk-cutoff thresholds for the [place] population. Serum or plasma urea nitroge n measurement (mass/volume)Ordered By: Mukesh Bacon on 04-28-2025 Urea nitrogen [Mass/Vol] 11 mg/dL 4-19 [facility] Sodium levelOrdered By: Mukesh Bacon on 04-28-2025 Sodium [Moles/Vol] 141 mmol/L 133-145 [facility] Triglycerides measurementOrd ered By: Mukesh Bacon on 04-28-2025 Triglyceride [Mass/Vol] 46 mg/dL <199 [facility] Comment on above: The drugs N-Acetylcy steine and Metamizole may falsely depress this assay. Normal range: <150 mg/dLBorderline High: 150-199 mg/dLHigh: 200-499 mg/dLVery High: >500 mg/dL White blood cell (WBC) count Ordered By: Mukesh Bacon on 04-28-2025 WBC (Bld) [#/Vol] 14.0 10*3/uL High 4.4-11.0 [facility] Orthopedic Visit Reporton Orthopedic Visit Report [facility] [address] [place] [address] OFFICE VISIT Date of Service: 03/02/25 MR#: [id number] Acct: [id number] Name: RAMON SALINAS Rep #: [id number] : 1960 Provider: Dr. Rm Alcantar MD Age/Sex: 64/M Location: [facility].LAKESHIA Status: Signed Intake Vital Signs 12/09/24 08:07 [...] you fallen in the past year?: No [facility] Medical History (Updated 03/02/25 @ 16:22 by [...] him the most. 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 Patient states he has seen disabilities caregiver, [facility], and pain management with Dr. Wilkins. He has been getting injections and the most recent was 1-2 weeks ag (more content not included)... Normal [facility] Magnetic resonance imaging r eportOrdered By: Hood Burgos on 01-25-2025 Study report [facility] Imaging Services [address] [place] [address] Spine Lumbar (Routine) MR#: [id number] Acct: [id number] Name: RAMON SALINAS Rep #: [id number] : 1960 M 64 From: Aaron Burgos MD PCP: Care Physician,No Primary Status: REG CLI Study:Spine Lumbar (Routine) Date of Exam: 01/24/25 Exam# [id number] Ordering Dr: Art Colin PROCEDURE: SPINE LUMBAR (ROUTINE) 01/24/2025 REASON FOR EXAM: PAIN TECHNIQUE: SPINE LUMBAR (ROUTINE) COMPARISON: Radiographs on 12/09/2024. FINDINGS: Heterogeneous signal intensity of the visualized bone marrow, probably osteopenia/osteoporosis . Moderate diffuse spondylosis/moderate multilevel degenerative disc disease. [...] IMPRESSION: Spondylosis. Degenerative disc disease. Reading Location: [place] [address] CC: ELVER Song; No Primary Care Physician ~ Marine Structural Designer: Signed [facility] Spine Lumbar (Routine)on Spine Lumbar (Routine) [facility] Imaging Services [address] [place] [address] Spine Lumbar (Routine) MR#: [id number] Acct: [id number] Name: RAMON SALINAS Rep #: [id number] : 1960 M 64 From: Hood sin MD PCP: Care Physician,No Primary Status: REG CLI Study: Spine Lumbar (Routine) Date of Exam: 01/24/25 Exam# [id number] Ordering Dr: Jana Colin PROCEDURE: SPINE LUMBAR (ROUTINE) 01/24/2025 REASON FOR EXAM: PAIN TECHNIQUE: SPINE LUMBAR (ROUTINE) COMPARISON: Radiographs on 12/09/2024. FINDINGS: Heterogeneous signal intensity of the visualized bone marrow, probably osteopenia/osteoporosis . Moderate diffuse spondylosis/moderate multilevel degenerative disc disease. [...] IMPRESSION: Spondylosis. Degenerative disc disease. Reading Location: [place] [address] CC: ELVER Song; No Primary Care Physician Marine Structural Designer: Signed Normal [facility] L/S Spine Min 4 Views L/S Spine Min 4 Views [facility] Imaging Services [address] [place] [address] L/S Spine Min 4 Views MR#: [id number] Acct: [id number] Name: SALINASRAMON J Rep #: [id number] : 1960 M 64 From: Sha Moscoso MD PCP: Care Physician,No Primary Status: DEP [facility] Study: L/S Spine Min 4 Views Date of Exam: 12/09/24 Exam# [id number] Ordering Dr: Jana Colin PROCEDURE: L/S SPINE MIN 4 VIEWS 12/09/2024 REASON FOR EXAM: CHRONIC PAIN, PAIN RADIATES DOWN RT LEG TECHNIQUE: Four views, AP, lateral, flexion-extension COMPARISON: None available FINDINGS: 5 min-uqx-jnlynxh lumbar vertebral body types identified. Likely remote appearing moderate anterior wedge compression deformity of T12. No lumbar fracture or malalignment identified. L1-2 moderate disc space narrowing and degenerative endplate changes L2-3 mild disc space narrowing with anterior corner osteophyte formation L3-4 severe disc space narrowing with essentially ejbn-ac-pqga contact L4-5 severe disc space narrowing with cyey-xj-qpxs contact and degenerative endplate changes with appearance of suggested foraminal narrowing L5-S1 spondylosis/discogenic change No evidence of instability RAD/L/S Spine Min 4 Views IMPRESSION: Multilevel spondylosis/discogenic changes above. Likely remote appearing moderate anterior wedge compression deformity of T12. 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 Part of today???s visit [...] months later. Patient states he has seen disabilities caregiver, [facility], and pain management with Dr. Wilkins. [...] when walking. He still works part-time at [employer] and states he is on his feet [...] own. He had an MRI done at [facility] in 2019. No diabetes, no heart or [...] L4 o (more content not included)... Normal [facility] Clinical Summary: HMSPatient IDon 12-05-2019 AOP [facility] Work Phone: Office Visit: New - 1st visi t with practice, Rm: 2on 12-05-2019 NEGATED: Highlighted rowMRI (magnetic resonance imaging) history of the lumbar on 11/24/2019 at [facility] imported [facility] Work Phone: NEGATED: Highlighted rowTobacco smoking status NHIS current everyday smoker [facility] Work Phone: NEGATED: Highlighted rowxray history of the lumbar on 11/07/2019 at [facility] imported [facility] Work Phone: Office Visit: New Pt. Tristino n 05-01-2017 Documentation of current medications (procedure) Done Invalid Interpretation Code [facility] Work Phone: Fall risk assessment No Invalid Interpretation Code [facility] Work Phone: Tobacco use [facility] Current every day smoker Invalid Interpretation Code [facility] Work Phone: OBSOLETEon 03-09-2017 OBSOLETE Refill (ORTHWS) RAMON LOPEZ ([id number]) 1960 MDate Time Provider Department03/09/17 JENNIFER PICKETT [...] SignedLeft a detailed message for patient on [place].Allergies As of Date: 03/09/2017(No Known Allergies)Date Reviewed: 02/12/2017Reviewed by: Kristny Pakr Ma - Fully AssessedReason for Visit: Refill Request [94]Order(s):meloxicam (MOBIC) 15 mg tabletTake 1 tablet by mouth once daily.Disp: 30 tabletRfl: 0Prescriptions as of 03/09/2017 Sig: MELOXICAM 15 MG TABLET Take 1 tablet by mouth once d*Problem List As Of Date: 03/09/2017(None)Prescri ptions ordered this encounter Disp Refills Start End [...] Status:Closed by JENNIFER PICKETT MD on 03/10/17 [facility] CNOVon 02-12-2017 CNOV Office Visit (ORTHWS) RAMON LOPEZ ([id number]) 1960 MDate Time Provider Department02/12/17 2:25 PM JENNIFER PICKETT During your visit today, we recorded the following information about you: Pulse Blood pressure Weight Height 74/minute 133/84 81.6 kg 1.765 mLsarina Park Ma 02/18/2017 7:42 AM SignedPatient presents [...] and MRI on02/02/17. 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 Taking Daypro for the pain and is not sure if is is helpingor if the aspiration helped his pain.Jennifer Pickett MD 02/18/2017 7:42 AM SignedJennifer Pickett [facility] [address] [place] [address]Nlce: [phone] Aejo 2016CHIEF COMPLAINT: New Patient (Left knee meniscus [...] Daypro as well, but is unsure ofits efficacy.ASSESSMENT:M25 .562 Acute pain of left knee (primary encounter diagnosis)PLAN:Were going to try an anti-inflammatory as well as possibly an keyboard instrument repairer, howeverhe does not think it be able to use it based on all of squatting he has to do.He certainly has some reported improvement since its prior visit and nosurgical intervention is necessary at this time.If symptoms persist, knee arthroscopy certainly would be an appropriateintervention .FOLLOW UP INSTRUCTIONS:As neededMr. Ramon Salinas was advised as to contrast therapies and/or to takeanalgesics/anti-inf lammatories as needed and all contraindications werereviewed.OBJECTIVE: Mr. Ramon Salinas is a pleasant 56 year old in no apparent distress.Gen:BP 133/84 Pulse 74 Ht 5' 9.5ANDquot; (1.77m) Wt 180 lb (81.6kg) BMI26.21 kg/(m2). nl development, non obese, no deformitiesENT: Normocephalic, normal hearing, moist mucosaCV: Pulses:DP/PT= 2+ and symmetric, capillary refill ANDlt; 2 secs, no peripheraledema/varicos itiesSkin: no rash, bruising or lesions. Good turgor.Psych: cooperative and appropriate, alert and oriented x 3, good mood andaffect.Musculoskelet al:Patient walks with a very mild antalgia, normal [...] Sensation is grossly intact to light touch, subjectively.IMAGING:CO MPLEX TEAR OF THE MEDIAL MENISCUS, DEGENERATIVE CHONDRAL LOSS IN THEMEDIAL COMPARTMENT AND SMALL SUBCHONDRAL TRABECULAR DEFICIENCY FRACTUREIN THE MEDIAL TIBIAL PLATEAU.Transcriptionis t: PSCB ?Transcribe Date/Time: Jan ?2:05PDictated by : [...] non-contrast MRI of the kneeM: ?MRK_2COMPARISON: ?Radiographs 12/31/2016RESULT:MENISC I:Medial Meniscus: ?Complex tear in the posterior horn and body there isprobably displaced tissue near the posterior horn superiorly.Lateral Meniscus: ?Degenerative changes without a tearLIGAMENTS:ACL: ?IntactPCL: ?IntactMCL: ?IntactLCL Complex: ?IntactCARTILAGE:Medial Femoral Condyle: Large area(s) of full thickness cartilageloss/fissuring Medial Tibial Plateau: Moderate sized area(s) of predominantly [...] history on file.Past Surgical History: PAST SURGICAL [id number]: PAST SURGICAL HISTORY OF Comment: Removal calcium deposits and bone spurs on lumbar spineNo date: REMOVE TONSILS/ADENOIDS,ANDlt; 10 Y/O Comment: T/A (under age 10 years)Family History:FAMILY HISTORY Heart Mother Arthritis Mother CHF [OTHER] FatherSocial History:Social History Marital status: Spouse name: Years of education: Number of children:Social History Main Topics Smoking status: Current Every Day Smoker Packs/day: 1.00 Years: 26.00 Types: Cigarettes Smokeless status: Never Used Alcohol use: Yes Comment: Occasionally Drug use: No Sexual activity: Yes Partners with: FemaleMedications:Jeet mcrae Outpatient Prescriptions:meloxicam (MOBIC) 15 mg tablet Take 1 tablet by mouth once daily.No current facility-administered medications for this visit.Allergies: Review of patient's allergies indicates no known allergies.ROS:General (negative for fatigue, malaise, weight loss/gain)HEENT (negative for headache, earache, recent vision changes, sinus pain, sorethroat) Respiratory (no recent shortness of breath, hemoptysis)CV (negative for chest tightness, palpitations)Musculoske letal (see HPI)Psych (no depression, anxiety)This note was partially generated using TriggerMail voice recognition system, andthere may be some incorrect words, spellings, and punctuation that were notnoted in checking the note before saving.Lizz Whittington Provider: SELF [200]Allergies As of Date: 02/12/2017(No Known Allergies)Date Reviewed: 02/12/2017Reviewed by: rKistyn Park Ma - Fully AssessedReason for Visit: New Patient [172] Cmt: Left knee meniscus tear - Ref. Dr. Villanueva Visit Diagnosis:Acute pain of left knee [M25.562]Order(s):melox icam (MOBIC) 15 mg tabletTake 1 tablet by mouth once daily.Disp: 30 tabletRfl: 0Prescriptions as of 02/12/2017 Sig: MELOXICAM 15 MG TABLET Take 1 tablet by mouth once d*Problem List As Of Date: 02/12/2017(None)Prescri ptions ordered this encounter Disp Refills Start End MELOXICAM 15 MG TABLET 30 t* 0 02/12/2017 Route: ORAL Sig: Take 1 tablet by mouth once daily.Medications Discontinued During This Encounter oxaprozin (DAYPRO) 600 mg tablet 60 t* 0 01/16/2017 02/12/2017 Route: ORAL Sig: Take 1 tablet by mouth twice daily for 30 days. Disc: Changing Therapy/Dosage FormLetter Jas Salinas Date of - 1960 [facility] - [id number] Pickett M.D.Department of Orthopaedic [place] [place] [id number]: [phone]: [phone] : Ramon Salinas [id number] Whom It May Concern:Ramon Salinas was seen in my office today at [facility].Please excuse from work.Should you have any questions, or require additional information, please donot hesitate to contact my office.Sincerely,Waldemar Pickett MDEncounter Number: [id number] Status:Closed by JENNIFER PICKETT MD on 02/18/17 Normal [facility] PROGRESSon 02-12-2017 PROGRESS HNO ID: [id number]: Jennifer Berrios: (none)Author Type: PhysicianType: Progress NotesFiled: 02/18/2017 7:42 AMNote Text:Jennifer Pickett [facility] [place] [address]Lcsp: [phone] Arbm 2016CHIEF COMPLAINT: New Patient (Left knee meniscus [...] as well, but is unsure of its efficacy.ASSESSMENT:M25 .562 Acute pain of left knee (primary encounter diagnosis)PLAN:Were going to try an anti-inflammatory as well as possibly an keyboard instrument repairer,however he does not think it be able to use it based on all of squattinghe has to do. He certainly has some reported improvement since its priorvisit and no surgical intervention is necessary at this time.If symptoms persist, knee arthroscopy certainly would be an appropriateintervention .FOLLOW UP INSTRUCTIONS:As neededMr. Ramon Salinas was advised as to contrast therapies and/or to takeanalgesics/anti-inf lammatories as needed and all contraindications werereviewed.OBJECTIVE: Mr. Ramon Salinas is a pleasant 56 year old in no apparent distress.Gen:BP 133/84 Pulse 74 Ht 5' 9.5 (1.77m) Wt 180 lb (81.6kg) BMI26.21 kg/(m2). nl development, non obese, no deformitiesENT: Normocephalic, normal hearing, moist mucosaCV: Pulses:DP/PT= 2+ and symmetric, capillary refill < 2 secs, noperipheral edema/varicositiesSkin: no rash, bruising or lesions. Good turgor.Psych: cooperative and appropriate, alert and oriented x 3, good mood andaffect.Musculoskelet al:Patient walks with a very mild antalgia, normal [...] perfused. Sensation is grossly intact to lighttouch, subjectively.IMAGING:CO MPLEX TEAR OF THE MEDIAL MENISCUS, DEGENERATIVE CHONDRAL LOSS IN THEMEDIAL COMPARTMENT AND SMALL SUBCHONDRAL TRABECULAR DEFICIENCY FRACTUREIN THE MEDIAL TIBIAL PLATEAU.Transcriptionis t: PSCB ?Transcribe Date/Time: Jan ?2:05PDictated by : [...] non-contrast MRI of the kneeM: ?MRK_2COMPARISON: ?Radiographs 12/31/2016RESULT:MENISC I:Medial Meniscus: ?Complex tear in the posterior horn and body there isprobably displaced tissue near the posterior horn superiorly.Lateral Meniscus: ?Degenerative changes without a tearLIGAMENTS:ACL: ?IntactPCL: ?IntactMCL: ?IntactLCL Complex: ?IntactCARTILAGE:Medial Femoral Condyle: Large area(s) of full thickness cartilageloss/fissuring Medial Tibial Plateau: Moderate sized area(s) of predominantly [...] history on file.Past Surgical History: PAST SURGICAL [id number]: PAST SURGICAL HISTORY OF Comment: Removal calcium [...] use: No Sexual activity: Yes Partners with: FemaleMedications:Jeet nt Outpatient Prescriptions:meloxicam (MOBIC) 15 mg tablet Take 1 tablet by mouth once daily.No current facility-administered medications for this visit.Allergies: Review of patient's allergies indicates no known allergies.ROS:General (negative for fatigue, malaise, weight loss/gain)HEENT (negative for headache, earache, recent vision changes, sinus pain,sore throat) Respiratory (no recent shortness of breath, hemoptysis)CV (negative for chest tightness, palpitations)Musculoske letal (see HPI)Psych (no depression, anxiety)This note was partially generated using TriggerMail voice recognition system,and there may be some incorrect words, spellings, and punctuation thatwere not noted in checking the note before saving.Jennifer Pickett MD Normal [facility] PROGRESS HNO ID: [id number]: Kristyn Park MaService: (none)Author Type: (none)Type: Progress NotesFiled: 02/18/2017 7:42 [...] MRI on 02/02/17. Patient works in an [employer] and stands on his feet all day. Taking Daypro for the pain andis not sure if is is helping or if the aspiration helped his pain. Normal [facility] MRI KNEE WO IVCON LTon 02-02 MRI KNEE WO IVCON LT * * *Final Report* * *DATE OF EXAM: Feb 02 2017 1:46PM WRM 0212 - MRI KNEE WO IVCON LT / REASON: multiple diagnoses * * * * Physician Interpretation * * * * EXAMINATION: MRI LEFT KNEE WITHOUT CONTRASTHISTORY: Hemarthrosis, left knee Pain in left kneeTECHNIQUE: Routine non-contrast MRI of the kneeM: MRK_2COMPARISON: Radiographs 12/31/2016RESULT:MENISC I:Medial Meniscus: Complex tear in the posterior horn [...] No Wan's cyst.OTHER: No other significant abnormality identified.IMPRESSION:C OMPLEX TEAR OF THE MEDIAL MENISCUS, DEGENERATIVE CHONDRAL LOSS IN THE MEDIAL COMPARTMENT AND SMALL SUBCHONDRAL TRABECULAR DEFICIENCY FRACTURE IN THE MEDIAL TIBIAL PLATEAU.Transcriptionis t: PSCB Transcribe Date/Time: Feb 02 2017 2:05PDictated by : VIRGINIA LOPEZ MDThis examination was interpreted and the report reviewed and electronically signed by: VIRGINIA LOPEZ MD on Feb 02 2017 2:08PM EST Normal [facility] PROGRESSon 02-02-2017 PROGRESS HNO ID: [id number]: Mere Varner RtService: (none)Author Type: (none)Type: Progress NotesFiled: 02/02/2017 1:22 PMNote Text: Radiology Service Progress NotePATIENT NAME: Ramon SalinasMRN: [id number] OF SERVICE: February 02, 2017TIME: 1:21 PMPATIENT IDENTITY VERIFICATION COMPLETED USING TWO (2) METHODS: Patientconfirmed name verbally and Date of .PATIENT GENDER DATA: MalePATIENT RELEVANT IMPLANT DATA REVIEWED: YesRADIOLOGY DEPARTMENT: MR; Exam(s) Completed: Lower MSK: Knee, leftPERIPHERAL IV DATA: Not applicableSIGNED BY: Mere Varner RtJuly 2016 1:21 PM Normal [facility] Vital Signs Date Time Vital Sign Value Performing Clinician Facility 12-09-2024 08:07-0400 Body height 177.8 cm No Primary Care Physician [facility] 12-09-2024 08:07-0400 Body mass index (BMI) [Ratio] 24.3 kg/m2 No Primary Care Physician [facility] 12-09-2024 08:070400 Body weight 76.71 kg No Primary Care Physician [facility] 05-01-2017 13:24-0400 BMI (Body Mass Index) 26.15 kg/m2 Gerber Barragan MD [facility] Work Phone: 05-01-2017 13:24-0400 Body Temperature 97.5 [degF] Gerber Barragan MD [facility] Work Phone: 05-01-2017 13:24-0400 BP Diastolic 87 mm[Hg] Gerber Barragan MD [facility] Work Phone: 05-01-2017 13:24-0400 BP Systolic 141 mm[Hg] Gerber Barragan MD [facility] Work Phone: 05-01-2017 13:24-0400 Height 172.72 cm Gerber Barragan MD [facility] Work Phone: 05-01-2017 13:24-0400 Pulse (Heart Rate) 70 /min Gerber Barragan MD [facility] Work Phone: 05-01-2017 13:0400 Respiratory Rate 16 /min Gerber Barragan MD [facility] Work Phone: 05-01-2017 13:24-0400 Weight 78.02 kg Gerber Barragan MD [facility] Work Phone: NEGATED: Highlighted [id number] 11:040 BMI (Body Mass Index) 24.57 kg/m2 Hair Vance OUTBOUND SALES AGENT [facility] Work Phone: NEGATED: Highlighted [id number] 11:040 Body weight 73 kg Hair Pinky OUTBOUND SALES AGENT [facility] Work Phone: NEGATED: Highlighted [id number] 11:19040 Body weight 73.03 kg Hair Vance OUTBOUND SALES AGENT [facility] Work Phone: NEGATED: Highlighted [id number] 11:19-0400 Heart rate 2+ Hair Vance OUTBOUND SALES AGENT [facility] Work Phone: NEGATED: Highlighted [id number] 11:040 Height 173 cm Hair Vance [facility] Work Phone: NEGATED: Highlighted [id number] 11:190400 Height 172.72 cm Hair Vance [facility] Work Phone: Encounters Encounter Date Encounter Type Care Provider Facility Start: 05-06-2025 Encounter for genera l adult medical examination without abnormal findings Mukesh Bacon [facility] Start: 04-28-2025 End: 04-28-2025 ambulatory No Primary Care Physician -Laboratory [facility] Start: 04-28-2025 End: 04-28-[address] Mukesh Bacon MD -Laboratory [facility] Start: 04-28-2025 End: 04-28-2025 ambulatory Mukesh Bacon Facility:[facility] Start: 03-02-2025 End: 03-02-[address] Rm Alcantar MD -[facility] Work Phone: Start: 03-02-2025 End: 03-02-2025 ambulatory No Primary Care Physician -[facility] Start: 01-24-2025 End: 01-24-2025 ambulatory No Primary Care Physician [facility] Start: 01-24-2025 End: 01-24-2025 Patient encounter procedure Jana MCCOY [facility] Work Phone: Start: 01-24-2025 End: 01-24-2025 ambulatory Jana Colin Facility:[facility] Start: 12-09-2024 End: 12-09-2024 Patient encounter procedure Jana MCCOY -[facility] Work Phone: Start: 12-09-2024 End: 12-09-2024 ambulatory Jana Cloin Facility:[facility] Start: 12-05-2019 End: 12-05-2019 Patient encounter procedure Merrill Osborne MD Work Phone: [facility] Work Phone: Start: 02-12-2017 End: 02-18-2017 Ambulatory JENNIFER PICKETT [facility] Start: 02-02-2017 End: 02-02-2017 Ambulatory SARAH WATKINS [facility] Procedures Date Procedure Procedure Detail Performing Clinician Start: 04-28-2025 Prostate specific antigen measurement No Primary Care Physician Comment on above: This test was perfor med using the [employer] tPSA method. Measured values of a patient sample can vary depending on the testing procedure used. PSA values determined on patient samples by different testing procedures cannot be used interchangeably. If there is a change in PSA assays while monitoring therapy, sequential testing should be performed to confirm baseline values. Start: 01-24-2025 MRI of lumbar spine No [...] Treatment Date Care Activity Detail Author Start: 07-11-2025 ambulatory Ambulatory Facility:[facility] Start: 02-06-2020 End: 02-06-2020 Appointment Appointment [facility] Work Phone: Start: 12-05-2019 End: 12-05-2019 Appointment Appointment [facility] Work Phone: Start: 12-05-2019 End: 12-05-2019 Njx dx/ther sbst intrlmnr lmbr/sac w/img gdn Epidural injection(s) - Lumbar [facility] Work Phone: Start: 12-05-2019 End: 12-05-2019 Pain Management consultation Pain Management consultation Non Specified [facility] Work Phone: Start: 05-01-2017 End: 05-01-2017 Appointment Appointment [facility] Work Phone: Start: 05-01-2017 End: 05-01-2017 Follow Up Appt 6 months Follow Up Appt 6 months [facility] Work Phone: Patient Education \cps-sql1\CPS_ PtEducati on\[email or web address]_[id number].pdf [facility] Work Phone: Immunizations Immunization Date Immunization Notes Care Provider Fa [facility] 05-14-2016 Influenza virus vaccine No P [facility] Care Physician [facility] 11-27-2014 tetanus toxoid, redu amado diphtheria toxoid, and acellular pertussis vaccine, adsorbed No Primary Care Physician [facility] Payers Date Payer Category Payer Medicare [id number] 2024 Self-pay Unknown [id number] Unknown [id number] [id number] Unknown [id number] 2.16.8 [id number] Unknown [id number] 2.16.8 [id number] Unknown [id number] 2.16.8 [id number] Unknown [id number] 2..8 [id number] Unknown [id number] [id number] Social History Date Type Detail Facility Start: 12-09-2024 Tobacco smoking status NHIS Smokes tobacco daily (finding) [facility] Start: 04-27-2017 Alcohol Alcohol [facility] Start: 04-27-2017 Lives Lives [facility] Start: 04-27-2017 Tobacco Use Tobacco Use [facility] Start: 1960 Sex Assigned At Male W [facility] Sex Male [facility] NEGATED: Highlighted rowStart: 12-05-2019 End: 12-05-2019 Alcohol use Alcohol use [facility] Work Phone: NEGATED: Highlighted rowStart: 12-05-2019 End: 12-05-2019 Assertion Current every day smoker [facility] Work Phone: NEGATED: Highlighted rowStart: 12-05-2019 End: 12-05-2019 Details of drug misuse behavior Details of drug misuse behavior [facility] Work Phone: NEGATED: Highlighted rowStart: 12-05-2019 End: 12-05-2019 Tobacco use and exposure Tobacco use and exposure [facility] Work Phone: Evaluation note 03-02-2025 Note Date & Type Note Facility 03-02-2025 Evaluation note Diagnosis Onset Date Resolution Degenerative disc disease (DDD) of lumbar region with discogenic back pain acute March 02, 2025 7:57am Foraminal stenosis of lumbar region acute March 02, 2025 7:57am Kyphosis acute March 02 7:57am [facility] Work Phone: Evaluation note 12-09-2024 Note Date & Type Note Facility 12-09-2024 Evaluation note Diagnosis Onset Date Resolution Degenerative disc disease (DDD) of lumbar region with discogenic back pain acute December 09, 2024 7: 57am History of back surgery acute M 2024 7:57am [facility] Work Phone: Evaluation note 12-09-2024 Note Date & Type Note Facility 12-09-2024 Evaluation note Diagnosis Onset Date Resolution Degenerative disc disease (DDD) of lumbar region with discogenic back pain acute December 09, 2024 7: 57am History of back surgery acute M 2024 7:57am Degenerative disc disease (DDD) of lumbar region with discogenic back pain acute March 02, 2025 7:57am Foraminal stenosis of lumbar region acute March 02, 2025 7:57am Kyphosis acute March 02 7:57am [facility] Work Phone: Reason for referral (narrative) Note Date & Type Note Facility Reason for referral (narrative) No reason for referral information available [facility] Work Phone: Summary Purpose Family History [...] 7:57am Kyphosis March 02, 2025 7:57 am Chief Complaint Admit Date LUMBAR PAIN January 24, 2025 4:13 pm [...] section and content) DATE CREATED AUTHOR 01/27/2018 [facility] DATE CREATED AUTHOR AUTHOR'S ORGANIZ ATION 05/09/2025 [facility] Reason for Visit (unrecogniz ed section [...] December 09, 2024 End: December 09, 2024 ELVER Song Attending Provider Active Star t: December [...] January 24, 2025 End: January 24, 2025 ELVER Song Attending Provider Active Star t: January 24, 2025 End: January 24, 2025 ELVER Song Referring Provider Active Star t: January [...] March 02, 2025 End: March 02, 2025 Team Status: Active Member Role/Relationship Status Dates No Primary Care Physician Primary care physician Activ e Team Status: Inactive Member Role/Relationship Status Dates No Primary Care Physician Primary care physician Activ e Start: January 24, 2025 End: January 24, 2025 ELVER Song Attending physician Active Sta rt: January 24, 2025 End: January 24, 2025 ELVER Song Referring Provider Active Star t: January 24, 2025 End: January 24, 2025 Team Status: Inactive Member Role/Relationship Status Dates No Primary Care Physician Primary care physician Activ e Start: March 02, 2025 End: March 02, 2025 No Primary Care Physician Referring Provider Active Start: March 02, 2025 End: March 02, 2025 Dr. Rm Alcantar MD Attending physician Active Start: March 02, 2025 End: March 02, 2025 Team Status: Inactive Member Role/Relationship Status Dates No Primary Care Physician Primary care physician Activ e Start: April 28, 2025 End: April 28, 2025 Dr. Mukesh Bacon MD Attending physician Active Start: April 28, 2025 End: April 28, 2025 Dr. Mukesh Bacon MD Referring Provider Active Start: April 28, 2025 End: April 28, 2025 Goals (unrecognized section and content) Goals may be documented in a n alternate sectionGoals may be documented in an alternate sectionGoals may be documented in an [...] BE BASED ON THE PRIMARY CLINICAL RECORDS. [facility] [employer] [facility]. provides no warranty or guarantee of the accuracy or completeness of information in this document.
[2025-07-11] MEDS: Lactated Ringers 1,000 ML 15 ML IV (06:27)
[2025-07-11] MEDS: Magnesium 1 GM over 15 mins IV (06:28)
--- NOTE | 2025-07-11 07:25 | PRE.ANES_ITS ---
ASA Classification* ASA Classification ASA Classification: 2 Assessment & Plan Anesthesia* Anesthesia Assessment Anesthesia Assessment: Discussed sedation and/or anesthesia options, risks, benefits, and alternatives with patient/parents/legal guardian/POA. Questions invited. The patient/parents/legal guardian/POA seems to understand and agrees to proceed with anesthesia plan. Reviewed the physical assessment, medical history, allergy history and patient home medications list prior to surgery/procedure/anesthetic and documented any changes. Performed airway and anesthesia risk assessments. Anesthesia Type Anesthesia Type: General History Source History Obtained from:: Patient and Chart Anesthesia Focused Assessment* Temperature: 98.2 F Pulse Rate: 97 Blood Pressure: 145/89 Respiratory Rate: 14 Pulse Ox: 98 Oxygen Delivery Method: Room Air Airway Assessment Mouth opens: >3 cm Mallampati Score: II Teeth Condition: Intact and Missing Neck Range of motion (ROM): Full ROM Labs Anesthesia Preop lab: CBC WBC, (4.4-11.0) 11.5 K/mm3 H 06/28/25, 14:14 RBC, (4.6-6.2) 5.19 M/mm3 06/28/25, 14:14 Hgb, (13.0-16.5) 16.6 g/dL H 06/28/25, 14:14 Hct, (40-54) 47.9 % 06/28/25, 14:14 Plt Count, (150-450) 325 K/mm3 06/28/25, 14:14 CHEMISTRY Potassium, (3.3-5.1) 4.8 mmol/L 06/28/25, 14:14 Sodium, (133-145) 135 mmol/L 06/28/25, 14:14 Magnesium, (1.5-2.2) 2.2 mg/dL 06/28/25, 14:14 BUN, (4-19) 12 mg/dL 06/28/25, 14:14 Creatinine, (0.70-1.20) 0.64 mg/dL L 06/28/25, 14:14 Glucose, (70-99) 80 mg/dL 06/28/25, 14:14 POC Glucose, (74-106) 110 mg/dL H Today, 06:25 TSH, (0.358-3.74) 0.35 uIU/mL L 04/27/17, 02:08 COAG PT, (11.7-14.9) 12.9 SECONDS 04/26/17, 17:46 Pre-Assessment Diagnosis/Proposed Procedure Planned Operative Procedure(s): 360 Lumbar Fusion L4-5 and L5-S1 Anesthesia History 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 When Was Last Pacemaker Check QUESTION #4 FULL TEXT: You/Your Family Experience fever (hyperthermia) with Anesthesia Last Oral Intake Last Oral intake: Last Oral Intake NPO since 03:00 07/11/25 06:09 Meds taken in AM with sips of No 07/11/25 06:09 water? 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 Female No 06/26/25 14:51 HX of Motion Sickness Yes 06/26/25 14:51 HX of N/V After Surgery No 06/26/25 14:51 Non-Smoker No 06/26/25 14:51 Duration of Surgery greater Yes 06/26/25 14:51 than 60 minutes Number of Risk Factors 2 06/26/25 14:51 PONV Score Moderate Risk 06/26/25 14:51 Height & Weight Height & Weight: Anesthesia: Height & Weight Height 5 ft 9.5 in 07/11/25 06:09 Weight: 78.8 kg 07/11/25 06:09 Body Mass Index (BMI) 25.2 07/11/25 06:09 Respiratory Assessment Respiratory Assessment - student driving instructor: Respiratory Tract Infection Hx - student driving instructor Hx Respiratory Tract Infection No 06/26/25 14:51 STOP Sleep Apnea STOP Sleep Apnea - student driving instructor: STOP Sleep Apnea - student driving instructor Hx Hypertension No 06/26/25 14:51 Hx Sleep Apnea No 06/26/25 14:51 CPAP BIPAP Do you snore loudly (louder No 06/26/25 14:51 than talking or can be heard Do you often feel tired/ No 06/26/25 14:51 fatigued/ sleepy during daytime? Has anyone observed you stop No 06/26/25 14:51 breathing during sleep? STOP Results Negative 06/26/25 14:51 QUESTION #5 FULL TEXT : Do you snore loudly (louder than talking or can be heard through closed doors)? 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 Specify any problems Hx of Preganancy in last 3 N/A 06/26/25 14:51 Months Nurse Filling Out Transfusion JZOLALO 06/26/25 14:51 & Questions: Date: 06/26/25 06/26/25 14:51 Time: 14:52 06/26/25 14:51 Patient unable to answer at this time (ie. 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: /Reproductive Hx- student driving instructor Hx Now No 06/26/25 14:51 Gestational Age (in weeks): EDC: Hx Hx Para Hx Section SAB No 06/26/25 14:51 Does the father of the baby or his family experience fever w Father of the baby Malignant Hypertension history comment Active Medications Active Medications: Current Medications Generic Name Dose Route Start Last Admin Trade Name Freq PRN Reason Stop Dose Admin Acetaminophen 1,000 mg 07/11/25 07:30 07/11/25 06:28 Acetaminophen 500 Mg Tablet PO 07/11/25 07:31 1,000 mg PREOP ONE Administration Cefazolin Sodium 2 gm/ Sodium 110 mls @ 150 mls/hr 07/11/25 07:30 Chloride IV 07/11/25 08:13 INTRAOP ONE Tranexamic Acid 1,000 mg/ 110 mls @ 440 mls/hr 07/11/25 07:30 Sodium Chloride IV 07/11/25 07:44 INTRAOP ONE Tranexamic Acid 1,000 mg/ 110 mls @ 440 mls/hr 07/11/25 07:30 Sodium Chloride IV 07/11/25 07:44 INTRAOP ONE Magnesium Sulfate 1 gm/ 102 mls @ 408 mls/hr 07/11/25 07:30 07/11/25 06:28 Dextrose IV 07/11/25 07:44 408 mls/hr PREOP ONE Administration Lactated Ringer's 1,000 mls @ 15 mls/hr 07/11/25 06:00 07/11/25 06:27 IV 15 mls/hr .Q48H POWER Administration Insulin Human Lispro 1 - 6 unit 07/11/25 07:30 Insulin Lispro 100 Unit/Ml Insuln.Pen SC Q4H PRN PRN BG>/= 180, SEE PROTOCOL Protocol PFSH Medical History Wears glasses Smoker Kyphosis Foraminal stenosis of lumbar region Home Medications ?Medication ?Instructions ?Recorded ?Last Taken ?Type acetaminophen 500 mg tablet 1,000 mg (2 x 500 mg) PO Q 8H PRN 04/27/17 Unknown Rx PRN pain not controlled with Mobic #30 tabs meloxicam 7.5 mg tablet 7.5 mg PO QDAY pain 12/09/24 07/07/25 History methocarbamol 500 mg tablet 500 mg PO .qd spasm 07/07/25 History Allergy/AdvReac Type Severity Reaction Status Date / Time bee venom protein (honey AdvReac Other Verified 07/11/25 06:07 bee) (bee sting) Surgical History History of back surgery Social History household members: spouse Smoking Status: Current every day smoker tobacco type: cigarettes alcohol intake: current alcohol intake frequency: a few times a week Review of Systems (Anesthesia) ROS Narrative System reviewed and no additional complaints, except as documented.
--- NOTE | 2025-07-11 07:31 | PCM.HP.BLA ---
History and Physical Date of Admission: 07/11/25 MR#: [id number] Acct: [id number] Name: HUNTER BAKER Rep #: [id number] : 1960 Provider: Dr. Rm Alcantar MD Age/Sex: 64/M [place] [facility] [place] [facility] [place]: Signed Intake Vital Signs 12/10/2507:07 06/20/2511:04 Height 5 ft 10 in 5 ft 10 in Intake Visit Reasons: lumbar spine Chief Complaint: pre-op Accompanied by: Is patient in pain?: Yes Allergies bee venom protein (honey bee) (bee sting) Adverse Reaction (Verified 07/07/25 15:08) Other Medications ?Medication ?Instructions ?Recorded ?Confirmed ?Type acetaminophen 500 mg tablet 1,000 mg (2 x 500 mg) PO Q8H PRN 04/27/17 07/07/25 Rx PRN pain not controlled with Mobic #30 tabs meloxicam 7.5 mg tablet 7.5 mg PO QDAY pain 12/09/24 07/07/25 History methocarbamol 500 mg tablet 500 mg PO .qd spasm 12/09/24 07/07/25 History Have you fallen in the past year?: No PFSH Medical History Wears glasses Smoker Kyphosis Foraminal stenosis of lumbar region Surgical History History of back surgery Social History household members: spouse Smoking Status: Current every day smoker tobacco type: cigarettes alcohol intake: current alcohol intake frequency: a few times a week HPI lumbar spine Details: This documentation accurately reflects the service provided and the decisions made by me, Dr. Rm Alcantar MD 07/07/25 2753. Part of today?s visit was documented by Carmen DOMINGUEZ, acting as scribe. HUNTER BAKER is a 64 year old M here today for preop, lumbar spine, dos 07/11/25. The patient is a 64-year-old male presenting for preoperative counseling for spinal surgery to address leg pain. He has been cleared for surgery by his primary care physician, Dr. Bacon, and has received insurance approval. He denies any new symptoms, falls, or injuries since his last visit. His past medical history is negative for diabetes, heart or lung problems, and he is not taking any blood thinners. He denies any previous abdominal surgeries. He has a history of prior back surgery. He reports a social history of smoking approximately half a pack to nearly a pack of cigarettes per day for many years. Attestation: Documentation on this patient encounter was supported using ambient scribe technology/ voice AI technology. The patient consented to recording for the purpose of documenting the encounter. Provider reviewed content of the generated note prior to signature. 06/20/25: HUNTER BAKER is a 64 year old M here today for a lumbar spine follow up. He complains of ongoing low back pain. He does have pain going down his right leg. Sometimes he feels a burning feeling in his leg. The pain radiates laterally down the right leg to his toes. He states it feels like his calf is really big and swollen. Patient has been doing epidural shots by Dr. Wilkins. His last one was in January. The last injection did not help at all. He hasn't tried any physical therapy. He is still smoking but has cut down to 1 pack per day. 03/02/25: HUNTER BAKER is a 64 year old M here today for lumbar MRI review. He complains of bilateral low back pain. He reports stiffness in his low back. The pain does radiate down the lateral side of the right leg down to the toes. He describes the pain in his legs as a burning. He does report intermittent numbness and tingling into the right leg. The leg pain bothers him the most. 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 He reports being able to walk sixty yards. He does occasionally have trouble walking long distances. He has not has an injection since December. He is still doing stretching and exercises at home. He would like to discuss his MRI results and next steps. He denies any balance issues. He does report two previous lumbar spine surgeries twenty years ago. He denies a history of diabetes, heart or lung problems. He denies a history of strokes. ROS ROS Narrative Review of Systems - General: Denies new symptoms. - Neurological: Reports leg pain as his primary symptom and denies back pain. - Cardiovascular: Denies heart problems. - Respiratory: Denies lung problems. - Constitutional: Denies falls or new injuries. Ortho Exam General General: Yes no acute distress Neurologic: Yes alert and Yes oriented x3 Psychologic: Yes reasonable and appropriate Spine SPINE TESTING CERVICAL THORACIC LUMBAR Musculoskeletal Thoracic/Lumbar Spine: surgical scar(s) present Strength 0=absent - 5=normal Details: Neurological exam of the lower extremities shows 5x5 power. Normal sensations across all dermatomes. No hyperreflexia. No midline or paraspinal tenderness. Physical examination of the back shows a well-healed midline incision. Coding Level of Care Code Off vis,est,level 4 Diagnoses Degenerative disc disease (DDD) of lumbar region with discogenic back pain and leg pain M51.362 Foraminal stenosis of lumbar region M48.061 Other secondary kyphosis, thoracolumbar region M40.15 Kyphosis type: other secondary Spinal region: thoracolumbar Additional Codes Intake - Is patient in pain?: Yes (1125F) Time Spent (min) 35 Assessment and Plan Assessment and Plan (1) Degenerative disc disease (DDD) of lumbar region with discogenic back pain and leg pain: Status: Acute (2) Foraminal stenosis of lumbar region: Status: Acute (3) Kyphosis: Status: Acute Qualifiers: Kyphosis type: other secondary Spinal region: thoracolumbar Qualified Code(s): M40.15 - Other secondary kyphosis, thoracolumbar region Plan Assessment and Plan 1. Preoperative Counseling for Spinal Surgery - The patient is a 64-year-old male with leg pain who is scheduled for spinal surgery. - He has been cleared for the procedure by his primary care physician. - He was counseled on the surgical plan, which includes a 2-inch incision on the side of the belly and multiple small posterior incisions for titanium screw and augusta placement. - The surgery is expected to last 4-5 hours. - Discharge is anticipated on postoperative day 1 or 2, pending his ability to eat solid food and ambulate safely. - Postoperative restrictions for 3 months include no heavy lifting, excessive bending, or twisting. - He can resume driving in 2-4 weeks if not taking distracting pain medications. - A bone stimulator will be provided to aid healing, to be used for at least 6 months. - Follow-up will occur at 2 weeks, at which point he will begin outpatient physical therapy, with subsequent visits at 6 weeks, 3 months, and 1 year. - The postoperative course was discussed, including expectations for significant surgical pain and muscle spasms, which are managed with early mobilization. 2. Tobacco Use Disorder - The patient reports smoking up to a pack of cigarettes per day. - He was extensively counseled that smoking significantly increases the risk of postoperative complications, including a 1% risk of infection and poor bone healing (nonunion), which could lead to hardware failure and the need for future surgery. - He is strongly advised to quit smoking. 3. Risk Discussion - A detailed discussion of surgical risks was conducted. - This included the risks of infection, bleeding potentially requiring a transfusion, and nerve injury. - The 1-5% risk of a nerve stretch injury, possibly causing new or worsened pain, numbness, or weakness (such as foot drop), was explained to be almost always temporary. - The risk of pseudarthrosis, adjacent segment disease (1-3% per year), deep vein thrombosis, and pneumonia were also covered, with an emphasis on early mobility and smoking cessation as franco preventative measures. Patient Instructions - The surgery is expected to last about 4-5 hours. - After surgery, you will have significant pain, but it is very important to get up and start moving as soon as you can to help your muscles recover and prevent complications. - You will start on a clear liquid diet and can eat solid foods once you begin passing gas. - You will likely be in the hospital for 1 to 2 nights. - For the first 3 months after surgery, do not do any heavy lifting, excessive bending of your back, or twisting. - You can likely resume driving in 2 to 4 weeks, as long as you are not taking strong pain medication and the pain is not distracting. - Your stitches will be internal and will be covered by skin glue and strips; you will be able to shower. - Use the prescribed bone stimulator for at least 6 months to help your bones heal. - It is very important to reduce or quit smoking, as smoking seriously harms the bone healing process and increases your risk for complications. - There is a small risk that your leg symptoms could feel worse after surgery due to nerve stretching, but this is usually temporary. - You will have a follow-up appointment in 2 weeks, after which you will start outpatient physical therapy. - If you have stairs at home, please let the physical therapist at the hospital know so you can practice on them before you go home. I reviewed pt's previous x-rays and MRI in detail. X-rays show a multilevel disc height loss throughout the lumbar spine, a mild spondylolisthesis of L4 on L5, decreased disc height between L3 and L4 which is most likely a postsurgical change. There are some chronic compression deformities at T11, T12, L1. Secondary thoracolumbar kyphosis noticed. We discussed all options including surgical and non surgical. He has tried and failed the non surgical options and feels as though his quality and fucntion are declining therefore we will proceed with surgery. We discussed the surgical option of L4-S1 anterior and posterior fusion in detail. Discussed this procedure in detail and explained the risks, benefits and alternatives. The risks of surgery include but are not limited to infection, bleeding, injury to nerves or vessels, need for further surgery, ileus, vascular injury, visceral injury, DVT, pulmonary embolism, pneumonia, atelectasis, cardiopulmonary event, pseudoarthrosis, hardware failure, gait abnormality, adjacent segment degeneration. Discussed post-surgery restrictions in detail such as no bending, lifting, or twisting. Answered all questions to the patient?s satisfaction. Patient understands and agrees to proceed with surgery. Consent was signed.Follow up two weeks post operatively or sooner if pain, swelling, numbness or associated symptoms, or concerns develop. All questions answered. Patient in agreement of plan.
--- NOTE | 2025-07-11 07:38 | RAD_ITS ---
PROCEDURE: Intraoperative fluoroscopy 07/11/2025 REASON FOR EXAM: ERAS, 360 LUMBAR FUSION L4-5 AND L5-S1 Intraoperative fluoroscopic services provided for 360 degree fusion at the L4-L5 and L5-S1 level. TECHNIQUE: Procedure Code: RADSPLL Modality: DX Procedure: LUMBAR SPINE 2 OR 3 VIEWS. 2 minutes and 33 seconds of fluoroscopy. Radiation dose: 95.65 mGy. COMPARISON: Prior study dated December 09, 2024. FINDINGS: Intraoperative fluoroscopic services provided for 360 degree fusion at the L4-L5 and L5-S1 levels. RAD/Lumbar Spine 2 or 3 Views IMPRESSION: Intraoperative fluoroscopic services provided for fusion. Reading Location: [facility]
[2025-07-11] MEDS: Midazolam 2 MG/2 ML Syringe IV (07:40)
[2025-07-11] MEDS: Lactated Ringers 1,000 ML 1000 ML IV (07:40)
[2025-07-11] MEDS: Lidocaine 1% (5 ml sdv) 5 ML Vial 8 ML IV (07:45)
[2025-07-11] MEDS: fentaNYL 100 MCG/2 ML Ampul 300 MCG IV (10:41)
[2025-07-11] MEDS: Cefazolin 1 GM/5 ML Vial 4 GM IV (11:40)
[2025-07-11] MEDS: 0.9% Normal Saline (1000mL) 1,500 ML 1500 ML IV (12:50)
[2025-07-11] MEDS: TRANEXAMIC ACID 1,000 MG/10 ML ML 2000 MG IV (12:57)
--- NOTE | 2025-07-11 13:20 | OP.PCM_ITS ---
Procedures Musculoskeletal 20xxx-29xxx: Other Procedure See Report Operative Report (Standard) Operative Information Date of Procedure: 07/11/25 Pre-Operative Diagnosis: L4-S1 severe disc degeneration with foraminal stenosis, severe radiculopathy Post-Operative Diagnosis: Same Surgery/Procedure Performed: L4-5 oblique lumbar interbody fusion link fabric machine operator: Yes Import And Export Clerk: Walter Schofield Tasks completed by pest controller assistant: Opening & closing, Removing tissue, Hemostasis: Electrocautery, Retracting and Other (Gs-nicijai-ybcalosr surgery-access) Additional assistant associate professor?: Yes Additional [employer] Driver #2: Jana Colin Tasks completed by assistant associate professor #2: Closing, Removing tissue, Hemostasis: Electrocautery and Retracting Type of Anesthesia: General RN Documented Start/Stop Times: Operation Date: 07/11/25 07:30 Case Time Into Pre-Op 07/11/25 05:45 Out of Pre-Op 07/11/25 07:35 Anesthesia Start 07/11/25 07:40 Into Room 07/11/25 07:40 Procedure Start 07/11/25 08:17 Procedure End 07/11/25 13:18 Procedure Start Time: 08:17 Procedure Stop Time: 13:18 Select all DRAINS/GRAFTS/IMPLANTS that apply: Graft Graft details: Allograft cancellous chips, autologous iliac crest bone marrow aspirate and Implanted device Implanted device details: DePuy cougar lateral lumbar interbody cage Estimated Blood Loss: 50 cc Specimen collected: No Description of surgery: Preoperative diagnosis: L4-S1 disc degeneration, stenosis with neurogenic claudication Postoperative diagnosis: Same Name of procedures L4-5 oblique lumbar interbody fusion (OLIF), L5-S1 attempted OLIF, minimally invasive right sided approach, lateral decubitus: ? L4-5 anterolateral spinal fusion ? L4-5 insertion of cage ? Bone graft aspirate left iliac crest separate incision ? Allograft cancellous chips Attending Surgeon: Dr. Rm Alcantar Co-surgeon: Dr. Walter Schofield Estimated blood loss: 50 mL Anesthesia: General Complications: None Indications: Patient is a 64-year-old pleasant gentleman who has had a long history of low back pain and right lower extremity radiation with difficulty walking distances. Xrays & MRI revealed L3-4 autofusion, L4-S1 severe disc height loss with disc degeneration with severe foraminal stenosis. After undergoing a prolonged period of nonoperative treatment, the patient elected to undergo surgical decompression & fusion. All surgical options were discussed with the patient including anterior and posterior approaches. All risks and benefits associated with the procedure were explained to the patient. The risks include but are not limited to infection, bleeding, injury to nerves and vessels including major vessels like IVC and aorta, persistent paresthesia, persistent pain, dural tear, need for further procedures, adjacent segment degeneration, pseudoarthrosis, hardware failure, retrograde ejaculation, paralytic ileus, etc. Procedure: The patient was identified in the preoperative holding suite using Unique patient identifiers. Skin was marked, consent was reviewed, and all questions were answered. The patient was then brought back to the operative room. A surgical timeout was performed to make sure correct procedure was being done on the correct patient and all operative room staff were on the same page. General endotracheal anesthesia was then given to the patient. Durand catheter was inserted. The patient was then carefully positioned in left lateral decubitus position with the right side up on a regular OR table. Axillary roll was placed and all bony prominences were well- padded. Hip positioners were placed in the posterior buttocks and anterior sternal area. The surgical area was prepped and draped in usual fashion. Preoperative antibiotic was injected IV as preoperative antibiotic. A final timeout was then again done just before starting the procedure. A 2 inch incision oblique was taken in the right lower quadrant of the abdomen 2 fingerbreadths away from the iliac crest and the lower ribs. Sharp dissection with Bovie was carried out up to the fascia covering the external oblique. The external oblique, internal oblique and transversus abdominis muscles were split along the muscle fibers and retroperitoneal space was entered. Sponge sticks were utilized to move the bowel and peritoneum [id number]-way and psoas muscle was exposed staying within the retroperitoneal plane. Bioject Medical Technologiesframe retractor system was positioned and the retractor blade was applied onto the psoas. The interval between psoas and IVC was developed and appropriate retractors were placed. Once adequate interval was cleared, a disc space was identified and a marker x-ray was taken. This identified the L4-5 disc level. The prepsoas interval was then traced inferiorly to expose the L5-S1 disc. Unfortunately, due to severe chronic inflammatory thickened adipose tissue, the anatomy was found to be not favorable for an anterolateral approach for L5-S1 disc. Decision was made to perform TLIF at L5-S1 during the posterior stage of the surgery. Please see details of exposure in Dr. Schofield's operative note. Annulotomy was done with a long handled knife at L4-5. Pituitary was used to remove disc material. Curettes were used to prepare the endplates. Disc space spreaders were utilized to distract and increase the disc height. Near complete discectomy was performed. Smaller disc distractors were also used to bluntly perform a contralateral annulotomy. Trials of serially increasing sizes were used. A Jamshidi needle was used to aspirate bone marrow from the left anterior iliac crest through a separate incision and this aspirate was mixed with the allograft bone chips. A Depuy Webster cage of size of the 18 x 55 x 10 mm with 15 degrees lordosis was packed with corticocancellous allograft bone chips mixed with bone marrow aspirate. This was inserted into the L4-5 disc space. AP and lateral C-arm pictures were taken to confirm good position of the cage. Some bone chips were also packed around the cages. Hemostasis was confirmed. The retractor blades were removed. Closure was done in layers with a continuous strand of # 1 Vicryl in all muscle layers. 2-0 Vicryl was used for subcutaneous tissue and 4-0 for Monocryl for the skin. Steri-Strips were applied and 4 x 4 gauze and Tegaderm were applied. [employer] Driver Jana Colin PA-C. My physician assistant associate professor was a vital part of this case. They were important in appropriate retraction during the case, and pro tection of soft tissues during the procedure. Their intimate knowledge of the case and my steps aided in safe and expedient completion of the procedure as well as appropriate position of the patient during the surgery. They were also vital in assisting with closure under my direct supervision. Surgical Findings: See operative note Complications Complications: No
--- NOTE | 2025-07-11 13:25 | OP.PCM_ITS ---
Procedures Musculoskeletal 20xxx-29xxx: Other Procedure See Report Operative Report (Standard) Operative Information Date of Procedure: 07/11/25 Pre-Operative Diagnosis: L4-S1 severe disc degeneration with foraminal stenosis, severe radiculopathy Post-Operative Diagnosis: Same Surgery/Procedure Performed: L5-S1 TLIF, L4-S1 posterior spinal instrumented fusion manager process improvement: Yes Diesel Service Journeyman: Jana Colin Tasks completed by recovery assistant: Closing, Removing tissue, Implanting device, Hemostasis: Electrocautery and Retracting Type of Anesthesia: General RN Documented Start/Stop Times: Operation Date: 07/11/25 07:30 Case Time Into Pre-Op 07/11/25 05:45 Out of Pre-Op 07/11/25 07:35 Anesthesia Start 07/11/25 07:40 Into Room 07/11/25 07:40 Procedure Start 07/11/25 08:17 Procedure End 07/11/25 13:18 Procedure Start Time: 08:17 Procedure Stop Time: 13:18 Select all DRAINS/GRAFTS/IMPLANTS that apply: Graft Graft details: Allograft cancellous chips and Implanted device Implanted device details: DePuy Viper prime pedicle screw instrumentation, DePuy XPac TLIF cage Estimated Blood Loss: 50 cc Specimen collected: No Description of surgery: Preoperative diagnosis: L4-S1 severe disc degeneration with foraminal stenosis, severe radiculopathy Postoperative diagnosis: Same Name of procedure: L5-S1 transforaminal lumbar interbody fusion (TLIF), minimally invasive right side approach, L4-S1 percutaneous pedicle screw instrumentation with fusion. . L5-S1 posterior spinal fusion and interbody fusion 14146 ? L4-S1 posterior pedicle screw instrumentation 36442 . L4-5 posterior spinal fusion 42512 . L5-S1 insertion of cage [id number] . Local autograft . Cancellous allograft with DBX Attending Surgeon: Dr. Rm Alcantar Estimated blood loss: 50 mL Anesthesia: GA Complications: None Implants: DePuy Synthes X-PAC TLIF cage, Viper prime screws Procedure: After the anterior procedure was completed, the patient was then turned prone onto a Cameron table. The back was prepped and draped in usual fashion. C-arm AP view was then taken. C-arm was positioned in a way that L5 was centralized and superior endplate of L5 and was parallel to the beam. Spinous process was centered between the pedicles. Midline was marked with skin marker and lateral borders of the pedicles were also marked. Skin marker was also utilized to bartolome transversely across the middle of the pedicles at L5. 2 vertical incisions about 1 inch Extending below this line were taken about 1/2 inch lateral to the pedicle line. The fascia was also incised vertically approximately the same length. Finger dissection was utilized to palpate the superior articular process and facet joint of L5-S1 on the right side. Sequential tubes were docked on the L5-S1 right facet joint and 60 mm length and 21 mm diameter tubular retractor was then placed and was attached to the arm attached to the OR table. Muscle tissue was removed with pituitaries and hemostasis was achieved with Bovie. Right inferior articular process of L5 and superior articular process of S1 were exposed with Bovie. Osteotome was utilized to remove a portion of the inferior articular process to expose the articular surface of S1. Some of this resected bone was used as autograft. [place] was then utilized to remove the rest of the inferior articular process and part of the lamina of L5. Superior articular process of S1 was resected with the help of a bur such that the cut was flush with the superior border of S1 pedicle. Significant expansion of the facet joint vertical collapse of the facet allowed adequate visualization of the exiting L5 nerve root which was decompressed by removing the S1 SAP. The traversing nerve root was identified and carefully retracted to expose the disc. Hemostasis was achieved with bipolar cautery. Significant bone overgrowth was seen. Osteotome had to be used to enter the disc space under C-arm control. Blunt spreaders were utilized to enter the disc space under C-arm visualization. Pituitary was used to remove disc material. Curettes of various sizes and angulations were utilized to remove as much of the disc material as possible. End plates were curetted to remove all cartilage. Angled curettes were used to remove disc material from the other side underneath the central annulus. TalkShoe X-PAC trials were inserted into position and checked under C- arm lateral view. The disc space was then filled with morselized autograft from the lamina and facet mixed with allo graft cancellous bone chips mixed with DBX which were then impacted with the trials. An 7 x 28 mm lordotic tall X-PAC cage filled with bone graft was then inserted into the disc space under x-ray control. Care was taken to make sure the cage was inserted deeper to the posterior longitudinal ligament. The expandable cage was then expanded to up to approximately 12 mm anterior height with approximately 15 degrees lordosis. The cage was found to be well fixed and not easily removable. AP and lateral views showed good positioning of the cage. Depuy Viper Prime screw tower was docked onto the transverse processes at L4. This was then slowly moved medially to reach the superior articular process of L4. This was then confirmed on C-arm and then a mallet was utilized to drive the trocar and screw into the pedicle going up to the medial wall of the pedicle on AP view. This was performed both sides. C-arm lateral view confirmed both trocars to be inside vertebral body. The screws were advanced. Similar procedure was done at L5 and S1 both sides. However the right S1 screw did not have good purchase and was then removed. Cannulated pedicle screws (Depuy Viper) sizes were 7 x 55 mm bilaterally at L4 and L5 bilaterally and 7 x 50 at S1 on the left. The lateral view showed good positioning of the screws and cage. 70 mm precontoured titanium 5.5 mm lordotic [place] on the left and 50 on the right were then passed through the screw extensions and reduced down to the screws with the help of Depuy Viper Prime instrumentation system. AP and lateral views of the C-arm showed good positioning of the screws and cage. Final tightening with the torque screwdriver was then completed. [place] was utilized to decorticate the left L4-5 and L5-S1 facet joint and bone graft was placed over this. Hemostasis was achieved with the help of Bovie and FloSeal. Closure was done in layers with 0 Vicryls for the fascia, 2-0 Vicryls for the subcutaneous tissue, and Monocryl for the skin. Dressings were applied covered with Tegaderm. The patient was then turned supine onto a hospital bed. The patient was extubated and taken to PACU in stable condition. The patient tolerated the procedure well and no complications occurred. net[employer]entry-PAC cage & Viper Prime minimally invasive pedicle screw instrumentation system was utilized in this case. No dural tear was identified in this case. I was present for the entirety of the case and performed the surgery myself. Banquet Chef Jana Colin PA-C. My physician promotions assistant was a vital part of this case. They were important in appropriate retraction during the case, and protection of soft tissues during the procedure. Their intimate knowledge of the case and my steps aided in safe and expedient completion of the procedure as well as appropriate position of the patient during the surgery. They were also vital in assisting with closure under my direct supervision. Surgical Findings: See operative note Complications Complications: No
--- NOTE | 2025-07-11 13:36 | PCM.POST.ANE ---
Anesthesia: Postop Eval I Current Vital Signs Temperature: 97.5 F Pulse Rate: 83 Blood Pressure: 121/68 Respiratory Rate: 16 Pulse Ox: 99 Assessment Airway patent: Yes Spontaneous unlabored respirations: Yes nausea: No Vomiting: No Anesthesia Complication: No Fluid Hydration Crystalloid volume administer (ml): 2,500 Total IV fluid infused: 2,500 Progress Note Anesthesia document: Postop Eval 1 completed: Yes
--- NOTE | 2025-07-11 15:30 | POSTOPAN2_ITS ---
Anesthesia Postop Eval I Sum Postop Eval Completion status Anesthesia document: Postop Eval 1 completed: Yes Anesthesia Postop Eval I Summary Anesthesia Postop Eval I Summary: Anesthesia Postop Eval I: Assessment Summary Airway patent Yes 07/11/25 13:36 FREEZER TUNNEL [email or web address] Spontaneous unlabored Yes 07/11/25 13:36 FREEZER TUNNEL [email or web address] respirations Mental status nausea No 07/11/25 13:36 FREEZER TUNNEL [email or web address].[email or web address] Vomiting No 07/11/25 13:36 FREEZER TUNNEL [email or web address].[email or web address] Anesthesia Postop Eval I: Fluid Summary Crystalloid volume administer 2,500 07/11/25 13:36 FREEZER TUNNEL [email or web address].[email or web address] (ml) Colloids volume administered ( ml) Blood Product volume administered (ml) Total IV fluid infused 2,500 07/11/25 13:36 FREEZER TUNNEL [email or web address].[email or web address] Anesthesia Postop Eval I: Summary Notes Anesthesia Complication No 07/11/25 13:36 FREEZER TUNNEL [email or web address].[email or web address] Anesthesia Complication Comment: Post-operative progress note Anesthesia: Postop Eval II Evaluation Mental status: Awake and Calm Pain Level: 1 nausea: No Vomiting: No Complications Anesthesia Complication: No
--- NOTE | 2025-07-11 15:30 | PCM.POSTANE2 ---
Anesthesia Postop Eval I Sum Postop Eval Completion status Anesthesia document: Postop Eval 1 completed: Yes Anesthesia Postop Eval I Summary Anesthesia Postop Eval I Summary: Anesthesia Postop Eval I: Assessment Summary Airway patent Yes 07/11/25 13:36 [email or web address] Spontaneous unlabored Yes 07/11/25 13:36 IMPLEMENTATION COORDINATOR.[email or web address] respirations Mental status nausea No 07/11/25 13:36 IMPLEMENTATION [email or web address].[email or web address] Vomiting No 07/11/25 13:36 IMPLEMENTATION [email or web address].[email or web address] Anesthesia Postop Eval I: Fluid Summary Crystalloid volume administer 2,500 07/11/25 13:36 IMPLEMENTATION [email or web address].[email or web address] (ml) Colloids volume administered ( ml) Blood Product volume administered (ml) Total IV fluid infused 2,500 07/11/25 13:36 IMPLEMENTATION [email or web address].[email or web address] Anesthesia Postop Eval I: Summary Notes Anesthesia Complication No 07/11/25 13:36 IMPLEMENTATION [email or web address].[email or web address] Anesthesia Complication Comment: Post-operative progress note Anesthesia: Postop Eval II Evaluation Mental status: Awake and Calm Pain Level: 1 nausea: No Vomiting: No Complications Anesthesia Complication: No
--- NOTE | 2025-07-11 15:38 | PCM.OPRPT ---
Operative Report (Standard) Operative Information Date of Procedure: 07/11/25 Pre-Operative Diagnosis: L4-S1 severe disc degeneration with foraminal stenosis, severe radiculopathy Post-Operative Diagnosis: same Surgery/Procedure Performed: L4-5 oblique lumbar interbody fusion edger machine setter: Yes Punch Press Feeder: Jana Colin Tasks completed by technical administrative assistant: Opening, Closing, Opening & closing and Retracting Type of Anesthesia: General RN Documented Start/Stop Times: Operation Date: 07/11/25 07:30 Case Time Into Pre-Op 07/11/25 05:45 Out of Pre-Op 07/11/25 07:35 Anesthesia Start 07/11/25 07:40 Into Room 07/11/25 07:40 Procedure Start 07/11/25 08:17 Procedure End 07/11/25 13:18 Anesthesia End 07/11/25 13:29 Out of Room 07/11/25 13:29 Into Recovery 07/11/25 13:31 Procedure Start Time: 08:15 Procedure Stop Time: 10:00 Select all DRAINS/GRAFTS/IMPLANTS that apply: Graft Graft details: Allograft cancellous chips, autologous iliac crest bone marrow aspirate and Implanted device Implanted device details: DePuy cougar lateral lumbar interbody cage Estimated Blood Loss: 50 Specimen collected: No Description of surgery: Name of procedures L4-5 oblique lumbar interbody fusion (OLIF), L5-S1 attempted OLIF, minimally invasive right sided approach, lateral decubitus: ? L4-5 anterolateral spinal fusion 59807 ? L4-5 insertion of cage [id number] ? Bone graft aspirate left iliac crest separate incision ? Allograft cancellous chips Attending Surgeon: Dr. Rm Alcantar Co-surgeon: Dr. Walter Schofield HPI: Patient is a 64-year-old male with L4-S1 severe degenerative disc disease who has been assessed by Dr. Alcantar and felt to be appropriate for oblique lumbar interbody fusion from L4-S1. Vascular surgery services are requested to aid in exposure. Description of procedure: Upon obtaining informed consent and verification correct patient procedure site patient was taken to the operating room where he was placed under general anesthesia. He was then positioned prepped and draped in usual sterile fashion and timeout performed. Incision was made parallel to the iliac crest and Bovie used to dissect down through subcutaneous tissue then hand-held retractors placed in the position. Once the fascia was encountered it was then incised with sharp dissection parallel to the external oblique fibers. Hand-held retractors moved deeper into the wound and the remaining layers subsequently split along their muscle fibers gaining entry into the retroperitoneum. At this point blunt dissection was utilized to mobilize the abdominal contents off the lateral abdominal wall mobilizing them anteriorly. Once the psoas muscle was visualized the Syn frame self-retaining retractor was put into position. Combination of blunt and Bovie dissection was then utilized to expose the L4-L5 disc space in the position confirmed with fluoroscopy and then marked with Bovie. We then turned our attention to the L5-S1 disc space mobilizing the right iliac artery allowing it to be retracted anterior medially. The iliac vein was tethered posterior laterally by the internal iliac vein at the distal extent of our visualization. We were unable to successfully mobilize the common iliac vein in a sufficient fashion to safely expose the L5-S1 disc space and ligation of the internal iliac vein branch was not feasible nor desired. It is felt that we would abandon the L5-S1 disc space from the oblique approach and that this would be addressed from posterior during the second portion of the procedure. We then turned our attention back to the L4-L5 disc space at which point Dr. Alcantar performed his discectomy and implant placement which she will describe in further detail. Upon completion the retroperitoneum was then inspected with no evidence of any injury to the great vessels of the abdomen and there is palpable pulse throughout the iliac artery. The self-retaining retractor was then withdrawn and the superficial base irrigated with saline. The abdominal wall layers were then closed individually with running 1 Vicryl after which the superficial wound was again irrigated with saline. The incision was then closed with 3-0 Vicryl, 4-0 Monocryl and dry sterile dressing applied. The patient was then repositioned for posterior approach which Dr. Alcantar dictate separately. Surgical Findings: see above Complications Complications: No
--- NOTE | 2025-07-11 18:28 | PCM.HOSP.N ---
Hospitalist Note Patient underwent lumbar fusion today with Dr. Alcantar. Hospitalist consulted for medical management. Reviewed chart, patient vitally stable, only home medications are Tylenol, meloxicam, and methocarbamol. Evaluated patient at bedside and he reports no other medical complaints or history, he has no new or acute complaints. Lungs clear to auscultation bilaterally, HR regular. No nausea or abdominal pain or other acute complaints. Reports feeling fairly well after surgery. Does report he smokes but does not think he needs a nicotine patch. Denies routine alcohol use. No LAVELLE. Postoperative lumbar fusion management/pain management per primary.
[2025-07-11] MEDS: 0.9% Normal Saline (250mL Bag) 250 ML 15 ML IV (20:09)
[2025-07-11] MEDS: Cefazolin 2 GM in 0.9% Normal Saline (100mL Bag) 100 ML IV (20:10)
[2025-07-11] MEDS: Senna/Docusate Sodium 1 Tablet 2 TABLET PO (22:20)
[2025-07-11] MEDS: 0.9% Saline Lock 10 ML Syringe IV (23:44)
[2025-07-12 03:37] VITALS: BP 129/75; PULSE 87; RESP 15; TEMP 36.8; O2SAT 95
[2025-07-12] MEDS: Cefazolin 2 GM in 0.9% Normal Saline (100mL Bag) 100 ML IV (03:47)
--- NOTE | 2025-07-12 05:15 | RAD_ITS ---
PROCEDURE: LUMBAR SPINE 2 OR 3 VIEWS 07/12/2025 REASON FOR EXAM: S/P LUMBAR FUSION TECHNIQUE: Procedure Code: RADSPLL Modality: DX Procedure: LUMBAR SPINE 2 OR 3 VIEWS COMPARISON: January 24, 2025 FINDINGS: Straightening of the lumbar lordotic curvature with stable anterior wedging of the T12 and L1 vertebral bodies. Posterior spinal fixation of L4-S1. No hardware failure. Multilevel degenerative changes of the lumbar spine. Proliferative degenerative changes of the sacroiliac joints and bilateral hips. Soft tissues are otherwise unremarkable. RAD/Lumbar Spine 2 or 3 Views IMPRESSION: Degenerative and postsurgical changes of the lumbar spine without acute fractur e or spondylolisthesis. Reading Location: [facility]
[2025-07-12] MEDS: 0.9% Saline Lock 10 ML Syringe IV (05:40)
[2025-07-12 06:31] LABS: Hematocrit 40.4 % (40-54); Hemoglobin 13.7 g/dL (13.0-16.5); Immature Granulocytes Count 0.050 X10^3/uL (0.0-0.0); Mean Corp Hgb Conc 33.9 g/dL (32-36); Mean Corpuscular Volume 94.4 fL (80-94); Mean Platelet Vol. 9.3 fl (6.2-12.0); NRBC Flagged by Analyzer 0 % (0-5); Platelet Count 256 K/mm3 (150-450); RBC Distribution Width CV 14.0 % (11.6-14.6); RBC Distribution Width SD 48.8 fl (35.1-43.9); Red Blood Count 4.28 M/mm3 (4.6-6.2); White Blood Count 15.5 K/mm3 (4.4-11.0)
[2025-07-12 06:53] LABS: Anion Gap 8 (5-15); BUN 13 mg/dL (4-19); BUN/Creat Ratio 18.3 RATIO (10-20); Calcium,Total 7.8 mg/dL (7.6-11.0); Carbon Dioxide 27.3 mmol/L (21.0-32.0); Chloride 101 mmol/L (98-108); Estimated Creatinine Clearance 90.83 ml/min (50-250); Glucose 98 mg/dL (70-99); Potassium 4.2 mmol/L (3.3-5.1)
[2025-07-12 08:15] VITALS: BP 125/76; PULSE 93; RESP 16; TEMP 36.3; O2SAT 99
[2025-07-12] MEDS: Ensure Surgery 237 ML LIQUID PO ×2 (08:19→13:30)
[2025-07-12] MEDS: Senna/Docusate Sodium 1 Tablet 2 TABLET PO (08:19)
--- NOTE | 2025-07-12 10:47 | PCM.PN.HOSP ---
Subjective Subjective No issues overnight. Reactive leukocytosis otherwise rest of his lab work looks okay. Appears medically stable for discharge Objective Data Objective Data Vital Signs: Vital Signs Temp Pulse Resp BP Pulse Ox O2 Del Method O2 Flow Rate 97.4 F L 93 16 125/76 H 99 Room Air 4 07/12/25 08:15 07/12/25 08:15 07/12/25 08:15 07/12/25 08:15 07/12/25 08:15 07/12/25 08:15 07/11/25 15:15 Oxygen Flow Rate (L/min) 4 Oxygen Delivery Method Room Air Weight: 173 lb 11.588 oz Body Mass Index (BMI) 25.2 Intake & Output: Intake and Output for Last 24 Hours 07/11/25 07/12/25 07/13/25 03:59 03:59 03:59 Intake Total 3381 / 3381 290 / 290 Output Total 700 / 700 Balance 2681 / 2681 290 / 290 Lab / Micro Data 07/12/25 05:59 07/12/25 05:59 Labs: Laboratory Results - last 24 hr 07/12/25 05:59: WBC 15.5 H, RBC 4.28 L, Hgb 13.7, Hct 40.4, MCV 94.4 H, MCH 32.0, MCHC 33.9, RDW Std Deviation 48.8 H, RDW Coeff of Harpreet 14.0, Plt Count 256, MPV 9.3, Immature Gran % (Auto) 0.300, Neut % (Auto) 69.6, Lymph % (Auto) 23.0, [place] % (Auto) 6.5, Eos % (Auto) 0.2, Baso % (Auto) 0.4, Absolute Neuts (auto) 10.8 H, Absolute Lymphs (auto) 3.57, Nucleated RBC % 0, Sodium 136, Potassium 4.2, Chloride 101, Carbon Dioxide 27.3, Anion Gap 8, BUN 13, Creatinine 0.71, Estim Creat Clear Calc 90.83, Est GFR (MDRD) Non-Af 101, BUN/Creatinine Ratio 18.3, Glucose 98, Calcium 7.8 Micro: Microbiology 06/28/25 14:14 Swab (Method) Nasal Screen MRSA/MSSA - Final Radiography Diagnostic Testing: Radiology Impression Lumbar Spine X-Ray 07/11/25 07:38 IMPRESSION: Intraoperative fluoroscopic services provided for fusion. Reading Location: [facility] Lumbar Spine X-Ray 07/12/25 05:15 IMPRESSION: Degenerative and postsurgical changes of the lumbar spine without acute fracture or spondylolisthesis. Reading Location: [facility] Physical Exam Narrative General: Alert, Oriented x3, Cooperative, No apparent distress HEENT: Atraumatic, PERRLA, EOMI, Normocephalic Oral: Moist Mucosa Neck: Supple, No JVD Lungs: Diminished, Normal air movement, No rhonchi, No wheeze, No rales Cardiovascular: Regular rate, Regular Rhythm, Normal S1, Normal S2, No murmurs Abdomen: Soft, Non Tender, Non-Distended, No Hepato-splenomegaly Extremities: No edema, Capillary Refill Less than 3 Seconds Skin: Dressing CDI Musculoskeletal: No Tenderness to Palpation of Joints or Extremities Neurological: No focal neurological deficits, moves all extremities Psych/Mental Status: Normal Affect, Appropriate Assessment & Plan Assessment/Plan (1) Status post lumbar spinal fusion: PLAN: Plan 1. Severe radiculopathy with L4-S1 severe disc degeneration status post fusion on 07/11/2025 ? PT/OT ? Discharge planning per primary ? Medically stable for discharge ? Leukocytosis is reactive ? Pain management per primary DVT: Per primary Charges/Coding Visit Charges Inpatient E&M: 61286 Subs Hosp L2
[2025-07-12 13:31] VITALS: BP 132/78; PULSE 111; RESP 16; TEMP 37.1; O2SAT 97
--- NOTE | 2025-07-12 14:28 | CASEMGMT ---
Dx:360 lumbar fusion LACE:1 6-Clicks:No therapy recommended until f/u with ortho Medical record reviewed and patient evaluated for identification of discharge planning needs. Based on this review, at this time criteria are not present to indicate a need for discharge planning. Will remain available to assist with discharge planning needs as identified or requested. Pt is in need of a FWW. DARCY CM into pt room, provided pt with a verbal local in network list of providers for DME, pt chose [facility]. Pt denies any further homegoing needs. He states his can assist him at home. Referral sent to [facility] at this time via [facility] for FWW.
--- NOTE | 2025-07-12 14:49 | DCINST_ITS ---
Discharge Instructions DC O2, CPAP, BIPAP needs Home O2 Discharge instructions: No Follow Up Care Test Results: Test results from this visit will be discussed in further detail at your follow- up appointment, if applicable. Discharge Plan Admission Admit Date/Time: 07/11/25 13:39 Attending Provider: Rm Alcantar Primary Care Provider: Mukesh Bacon Consulting Providers: Kwadwo Dcik Instructions Patient Instructions: Lumbar Fusion Dc Additional Instructions / Restrictions: Keep Tegaderm and gauze clean and dry. If Tegaderm is intact, okay to shower. After 5 days remove Tegaderm and gauze and cover with a Band-Aid. Replace Band- Aid daily thereafter. No bending lifting or twisting. Follow-up in clinic in 2 weeks. Discharge Orders/Prescriptions Prescriptions: New acetaminophen 500 mg Tablet 1,000 mg PO Q6H Qty: 30 0RF meloxicam 15 mg Tablet 15 mg PO DAILY Qty: 30 0RF Rx Instructions: take once a day methocarbamol 500 mg Tablet 750 mg PO TID PRN (Reason: pain/spasms) Qty: 30 0RF oxycodone 5 mg Tablet 2.5 - 5 mg PO Q6H PRN (Reason: pain) 7 Days Qty: 28 0RF sennosides-docusate sodium [Stimulant Laxative Plus] 8.6-50 mg Tablet 2 tab PO BID PRN (Reason: constipation) Qty: 14 0RF Discontinued methocarbamol 500 mg tablet 500 mg PO .qd meloxicam 7.5 mg tablet 7.5 mg PO QDAY acetaminophen 500 MG tablet 1,000 mg PO Q8H PRN PRN (Reason: pain not controlled with Mobic) Qty: 30 0RF Rx Instructions: 1-2 tabs every 8 hours as needed for pain. Referrals / Follow Up: Mukesh Bacon MD [Primary Care Provider, Family Practice] Disposition Disposition (needs filled in before D/C Order can be placed): Home, Self Care
--- NOTE | 2025-07-12 14:53 | PN.ORTHO_ITS ---
Subjective Subjective Postop day 1 L4-S1 fusion. Patient is doing well with his pain well-controlled. The patient does note blood with urination. He says that that he has been experiencing this since the surgery. He denies any retention. He does report mild burning with urination. He is able to completely empty his bladder. Patient has been walking. The patient has passed gas and has tolerated a solid meal. PT/OT cleared. Seen with Dr. Alcantar. Objective Data Objective Data Vital Signs: Vital Signs Temp Pulse Resp BP Pulse Ox O2 Del Method O2 Flow Rate 98.8 F 111 H 16 132/78 H 97 Room Air 4 07/12/25 13:31 07/12/25 13:31 07/12/25 13:31 07/12/25 13:31 07/12/25 13:31 07/12/25 13:31 07/11/25 15:15 Oxygen Flow Rate (L/min) 4 Oxygen Delivery Method Room Air Weight: 173 lb 11.588 oz Body Mass Index (BMI) 25.2 Intake & Output: Intake and Output for Last 24 Hours 07/10/25 07/11/25 07/12/25 23:59 23:59 23:59 Intake Total 2881 / 3381 790 / 790 Output Total 700 / 700 Balance 2181 / 2681 790 / 790 Lab / Micro Data 07/12/25 05:59 07/12/25 05:59 Labs: Laboratory Results - last 24 hr 07/12/25 05:59: WBC 15.5 H, RBC 4.28 L, Hgb 13.7, Hct 40.4, MCV 94.4 H, MCH 32.0, MCHC 33.9, RDW Std Deviation 48.8 H, RDW Coeff of Harpreet 14.0, Plt Count 256, MPV 9.3, Immature Gran % (Auto) 0.300, Neut % (Auto) 69.6, Lymph % (Auto) 23.0, [place] % (Auto) 6.5, Eos % (Auto) 0.2, Baso % (Auto) 0.4, Absolute Neuts (auto) 10.8 H, Absolute Lymphs (auto) 3.57, Nucleated RBC % 0, Sodium 136, Potassium 4.2, Chloride 101, Carbon Dioxide 27.3, Anion Gap 8, BUN 13, Creatinine 0.71, Estim Creat Clear Calc 90.83, Est GFR (MDRD) Non-Af 101, BUN/Creatinine Ratio 18.3, Glucose 98, Calcium 7.8 Micro: Microbiology 06/28/25 14:14 Swab (Method) Nasal Screen MRSA/MSSA - Final Radiography Diagnostic Testing: Radiology Impression Lumbar Spine X-Ray 07/12/25 05:15 IMPRESSION: Degenerative and postsurgical changes of the lumbar spine without acute fracture or spondylolisthesis. Reading Location: [id number] Physical Exam Narrative Neurological exam of the lower extremities shows 5x5 power. Normal sensations across all dermatomes. Physical examination of the back and belly shows Tegaderm and gauze CDI. Const alert, oriented x3 and no apparent distress Assessment & Plan Assessment/Plan (1) Status post lumbar spinal fusion: PLAN: Plan Postop day 1 L4-S1 fusion. Obtained reviewed x-rays which show hardware and bone graft in good position. PT/OT cleared. Patient has passed gas and has tolerated a solid meal. Plan for home discharge today home-going meds include oxycodone, acetaminophen, meloxicam, methocarbamol, senna. OARRS reviewed. Reviewed and educated on the use of the incentive spirometer. Reviewed and educated him on restrictions and no bending, lifting, twisting. Patient will follow-up with us in 2 weeks. Sooner if needed for any issues. The patient will let us know if he continues to have blood in the urine, if so by Thursday a urology referral will be made. Patient is in agreement.
[2025-07-12 15:41] VITALS: BP 122/80; PULSE 105; RESP 16; O2SAT 96
--- NOTE | 2025-07-12 15:47 | PHA.DC.MC.R ---
Pharmacy [facility] Counseling Pharmacy Service has performed discharge medication reconciliation and counseling for this patient. 1. ACETAMINOPHEN 1000MG PO Q6 2. MELOXICAM 15MG PO DAILY 3. METHOCARBAMOL 750MG PO TID PRN MUSCLE SPASMS 4. OXYCODONE 2.5-5MG PO Q6H PRN PAIN 5. SENNA/DOCUSATE 2T PO BID PRN CONSTIPATION The patient's discharge medication list was reviewed for discrepancies and discrepancies were resolved. The patient was counseled on the following discharge medications and changes in medications for homegoing were reviewed. The Reason for Use, instructions for use, and potential side effects were reviewed for all new medications. The patient's questions regarding all of their medications were answered. The patient was able to verbally demonstrate an understanding of their discharge medications. Medications at Discharge Home Medications acetaminophen 500 mg tablet 1,000 mg (2 x 500 mg) PO Q6H #30 tabs 07/12/25 meloxicam 15 mg tablet 15 mg PO DAILY #30 tabs 07/12/25 methocarbamol 500 mg tablet 750 mg (1.5 x 500 mg) PO TID PRN pain/spasms #30 tabs 07/12/25 oxycodone 5 mg tablet 2.5 - 5 mg (0.5 - 1 x 5 mg) PO Q6H PRN pain 7 days #28 tabs 07/12/25 sennosides 8.6 mg-docusate sodium 50 mg tablet (Stimulant Laxative Plus) 2 tab PO BID PRN constipation #14 tabs 07/12/25
== END 2025-07-12 16:20 | disposition home or self-care (01) | DRG 428 ==
PROVIDERS: Student in an Organized Health Care Education/Training Program; Admitting Provider Orthopaedic Surgery Orthopaedic Surgery of the Spine; PCP Family Medicine; Referring Provider Orthopaedic Surgery Orthopaedic Surgery of the Spine; Visit Provider Orthopaedic Surgery Orthopaedic Surgery of the Spine
PROC: 0SG30AJ Fusion of Lumbosacral Joint with Interbody Fusion Device, Posterior Approach, Anterior Column, Open Approach (ICD-10-PCS; principal; 2025-07-11 07:00)
DX: M48.061 Spinal stenosis, lumbar region without neurogenic claudication (principal); F17.210 Nicotine dependence, cigarettes, uncomplicated; M48.07 Spinal stenosis, lumbosacral region; M40.15 Other secondary kyphosis, thoracolumbar region; M51.17 Intervertebral disc disorders with radiculopathy, lumbosacral region; M43.16 Spondylolisthesis, lumbar region; Z79.899 Other long term (current) drug therapy; M51.360 Other intervertebral disc degeneration, lumbar region with discogenic back pain only; R20.0 Anesthesia of skin
CPT/HCPCS: 36415; 72100; 76000; 80048; 80053; 82962; 83036; 83735; 85025; 86850; 86900; 86901; 87081; 94668; 97162; 99406; A4648; C1713; A4216; J2405; J3475